=== PATIENT | female | born 1945 | race Caucasian/White ===

== ENCOUNTER 2020-09-26 16:19 | Inpatient (IN) ==
[2020-09-26 17:12] LABS: Basophils # 0.1 K/mcL (0.0-0.2); Basophils % 0.6 %; Eosinophils % 9.4 %; Immature Granulocytes % 1.3 % (0-4); Lymphocytes # 1.9 K/mcL (0.6-4.6); Lymphocytes % 17.8 %; Mean Corpuscular Hemoglobin 32.8 pg (28.0-33.3); Mean Corpuscular Volume 109.5 fL (83.0-100.0); Mean Platelet Volume 11.1 fL (9.4-12.4); Monocytes # 0.7 K/mcL (0.0-1.3); Monocytes % 6.6 %; Neutrophils # 6.8 K/mcL (1.6-8.9); Platelet Count 324 K/mcL (140-400); Red Blood Count 2.74 M/mcL (3.82-4.97); Red Cell Distribution Width 17.2 % (11.5-14.5); Segmented Neutrophils % 64.3 %; White Blood Count 10.6 K/mcL (4.3-11.1)
[2020-09-26 17:45] LABS: Calcium 8.2 mg/dL (8.6-10.3); Potassium 6.1 mEq/L (3.5-5.1)
[2020-09-26] MEDS ORDERED: Calcium Gluconate 1gm/50mL BAG IVPB ONE (18:10)
[2020-09-26] MEDS ORDERED: Albuterol 2.5 MG/3 ML NEBULIZER AER ONE (18:15)
[2020-09-26] MEDS ORDERED: Insulin Human Regular 5 UNIT in 0.9 % Sodium Chloride 10 ML IV ONE (18:15)
[2020-09-26] MEDS ORDERED: *HR* Dextrose 50 % in Water (Vial) 50 ML VIAL IVP ONE (18:15)
[2020-09-26] MEDS ORDERED: Naloxone 0.4 MG/ML INJ IVP PRN (20:00)
[2020-09-26] MEDS ORDERED: 0.9 % Sodium Chloride 500 ML IVC ONE (20:15)
[2020-09-27] MEDS ORDERED: Acetaminophen 325 MG TABLET PO ONE (00:05)
[2020-09-27 02:03] LABS: Folate 6.8 ng/mL (3.0-16.0)
[2020-09-27 04:09] LABS: Hematocrit 26.4 % (35.3-44.9); Hemoglobin 8.4 g/dL (11.5-15.4); Immature Reticulocyte % 17.6 % (11.0-38.0); Mean Corpuscular HGB Conc 31.8 g/dL (31.6-35.5); Mean Corpuscular Hemoglobin 33.2 pg (28.0-33.3); Mean Corpuscular Volume 104.3 fL (83.0-100.0); Mean Platelet Volume 11.6 fL (9.4-12.4); Platelet Count 246 K/mcL (140-400); Red Blood Count 2.53 M/mcL (3.82-4.97); Red Cell Distribution Width 17.1 % (11.5-14.5); Retculocyte # 0.06 M/mcL (0.05-0.10); Reticulocyte % 2.4 % (1.6-2.8); White Blood Count 11.5 K/mcL (4.3-11.1)
[2020-09-27 04:32] LABS: % Iron Saturation 47 % (15-50); Iron 59 mcg/dL (50-170); Transferrin 89 mg/dL (203-362)
[2020-09-27 04:38] LABS: Calcium 7.7 mg/dL (8.6-10.3); Magnesium 2.4 mg/dL (1.6-2.6); Phosphorous 8.4 mg/dL (2.7-4.5); Potassium 6.5 mEq/L (3.5-5.1)
[2020-09-27] MEDS ORDERED: Calcium Gluconate 1,000 MG/10 ML VIAL IVPB ONE (05:00)
[2020-09-27] MEDS ORDERED: *HR* Dextrose 50 % in Water (Vial) 50 ML VIAL IVP ONE (05:02)
[2020-09-27] MEDS ORDERED: Calcium Gluconate 1gm/50mL BAG IVPB ONE (05:30)
[2020-09-27] MEDS ORDERED: Insulin Human Regular 10 UNIT in 0.9 % Sodium Chloride 10 ML IV ONE (05:32)
[2020-09-27 05:44] LABS: Ferritin > 1500 ng/mL (10-120)
[2020-09-27] MEDS ORDERED: *HR* Heparin 10,000 UNIT/10 ML VIAL IV PRN (07:55)
[2020-09-27] MEDS ORDERED: 0.9 % Sodium Chloride 250 ML IVC PRN (07:55)
[2020-09-27] MEDS ORDERED: 0.9 % Sodium Chloride 1,000 ML PRIME SCH (08:00)
[2020-09-27 09:35] LABS: Potassium 5.8 mEq/L (3.5-5.1)
[2020-09-27] MEDS ORDERED: Albumin 25% 25gram/100mL 25 GM/100 ML IV.SOLN IVPB PRN (09:46)
[2020-09-27] MEDS ORDERED: Albumin 25% 25gram/100mL 25 GM/100 ML IV.SOLN ONE (09:48)
[2020-09-27 09:50] LABS: Hepatitis B Surface Antibody < 3.10 mIU/mL
[2020-09-27 10:00] LABS: Hepatitis B Surface Antigen Nonreactive (Nonreactive)
[2020-09-27] MEDS ORDERED: *HR* OxyCODONE/APAP 5/325 TABLET PO PRN (10:49)
[2020-09-27] MEDS: SODIUM ZIRCONIUM CYCLOSILICATE 5 GM POWD.PACK PO SCH ×2 (11:04)
[2020-09-27] MEDS ORDERED: Darbepoetin 100 MCG/0.5 ML SYRINGE SQ SCH (13:45)
[2020-09-27] MEDS ORDERED: 0.9 % Sodium Chloride 500 ML ONE (14:03)
[2020-09-27] MEDS: Acetaminophen 325 MG TABLET PO PRN (15:26)
[2020-09-27] MEDS ORDERED: Ergocalciferol (VIT D2) 50,000 UNIT (1.25MG) CAP PO SCH (16:00)
[2020-09-27] MEDS ORDERED: SUCROFERRIC OXYHYDROXIDE PO SCH (17:00)
[2020-09-28 03:09] LABS: Basophils % 0.4 %; Eosinophils # 0.3 K/mcL (0.0-0.6); Eosinophils % 2.4 %; Hematocrit 23.1 % (35.3-44.9); Hemoglobin 7.3 g/dL (11.5-15.4); Lymphocytes # 1.1 K/mcL (0.6-4.6); Lymphocytes % 10.5 %; Mean Corpuscular HGB Conc 31.6 g/dL (31.6-35.5); Mean Corpuscular Hemoglobin 33.3 pg (28.0-33.3); Mean Corpuscular Volume 105.5 fL (83.0-100.0); Mean Platelet Volume 11.3 fL (9.4-12.4); Monocytes # 0.9 K/mcL (0.0-1.3); Monocytes % 8.5 %; Neutrophils # 8.4 K/mcL (1.6-8.9); Platelet Count 217 K/mcL (140-400); Red Blood Count 2.19 M/mcL (3.82-4.97); Red Cell Distribution Width 17.4 % (11.5-14.5); Segmented Neutrophils % 77.2 %; White Blood Count 10.9 K/mcL (4.3-11.1)
[2020-09-28 03:27] LABS: Calcium 7.9 mg/dL (8.6-10.3)
[2020-09-28] MEDS: SODIUM ZIRCONIUM CYCLOSILICATE 5 GM POWD.PACK PO SCH (08:21)
[2020-09-29 01:52] LABS: Basophils % 0.4 %; Eosinophils # 0.2 K/mcL (0.0-0.6); Hematocrit 25.1 % (35.3-44.9); Hemoglobin 7.8 g/dL (11.5-15.4); Immature Granulocytes % 2.2 % (0-4); Lymphocytes # 1.2 K/mcL (0.6-4.6); Lymphocytes % 10.7 %; Mean Corpuscular HGB Conc 31.1 g/dL (31.6-35.5); Mean Corpuscular Hemoglobin 33.5 pg (28.0-33.3); Mean Corpuscular Volume 107.7 fL (83.0-100.0); Mean Platelet Volume 11.5 fL (9.4-12.4); Neutrophils # 8.3 K/mcL (1.6-8.9); Platelet Count 222 K/mcL (140-400); Red Blood Count 2.33 M/mcL (3.82-4.97); Red Cell Distribution Width 17.9 % (11.5-14.5); Segmented Neutrophils % 75.7 %; White Blood Count 10.9 K/mcL (4.3-11.1)
[2020-09-29 02:09] LABS: Calcium 8.1 mg/dL (8.6-10.3); Potassium 5.1 mEq/L (3.5-5.1)
[2020-09-29] MEDS: Ondansetron 4 MG/2 ML VIAL IVP PRN ×2 (03:35→13:29)
[2020-09-29] MEDS: Acetaminophen 325 MG TABLET PO PRN ×2 (05:20→14:29)
[2020-09-29] MEDS ORDERED: *HR* Heparin 10,000 UNIT/10 ML VIAL IV PRN (07:24)
[2020-09-29] MEDS ORDERED: 0.9 % Sodium Chloride 250 ML IVC PRN (07:24)
[2020-09-29] MEDS: SODIUM ZIRCONIUM CYCLOSILICATE 5 GM POWD.PACK PO SCH (09:20)
[2020-09-29] MEDS: Calcium Acetate 667 MG CAPSULE PO SCH ×2 (12:32→17:30)
[2020-09-29] MEDS ORDERED: 0.9 % Sodium Chloride 500 ML ONE (12:37)
[2020-09-29] MEDS ORDERED: Heparin 1,000 UNITS/500 mL 500 ML ONE (12:37)
[2020-09-30 06:10] LABS: Calcium 7.6 mg/dL (8.6-10.3); Magnesium 2.2 mg/dL (1.6-2.6); Phosphorous 8.6 mg/dL (2.7-4.5); Potassium 5.6 mEq/L (3.5-5.1)
[2020-09-30] MEDS ORDERED: Dextrose Gel 15 GM/37.5 ML TUBE PO PRN ×2 (07:12)
[2020-09-30] MEDS ORDERED: D5% in Water 1,000 ML IVC PRN (07:12)
[2020-09-30 07:22] LABS: Basophils % 0.2 %; Eosinophils # 0.1 K/mcL (0.0-0.6); Eosinophils % 0.8 %; Hematocrit 25.5 % (35.3-44.9); Hemoglobin 7.8 g/dL (11.5-15.4); Immature Granulocytes % 1.8 % (0-4); Lymphocytes # 1.1 K/mcL (0.6-4.6); Lymphocytes % 6.7 %; Mean Corpuscular HGB Conc 30.6 g/dL (31.6-35.5); Mean Corpuscular Hemoglobin 33.3 pg (28.0-33.3); Mean Platelet Volume 11.3 fL (9.4-12.4); Monocytes # 1.4 K/mcL (0.0-1.3); Monocytes % 8.6 %; Neutrophils # 13.4 K/mcL (1.6-8.9); Nucleated Red Blood Cells 0.2 /100 WBC (0); Platelet Count 244 K/mcL (140-400); Red Blood Count 2.34 M/mcL (3.82-4.97); Red Cell Distribution Width 17.9 % (11.5-14.5); Segmented Neutrophils % 81.9 %; White Blood Count 16.3 K/mcL (4.3-11.1)
[2020-09-30] MEDS: Calcium Acetate 667 MG CAPSULE PO SCH ×3 (07:40→17:51)
[2020-09-30] MEDS: SODIUM ZIRCONIUM CYCLOSILICATE 5 GM POWD.PACK PO SCH (07:40)
[2020-09-30] MEDS ORDERED: *HR* Heparin 10,000 UNIT/10 ML VIAL IV PRN ×2 (07:47)
[2020-09-30] MEDS ORDERED: 0.9 % Sodium Chloride 250 ML IVC PRN (07:47)
[2020-09-30] MEDS ORDERED: Albumin 25% 25gram/100mL 25 GM/100 ML IV.SOLN IVPB PRN (07:47)
[2020-09-30] MEDS: Ondansetron 4 MG/2 ML VIAL IVP PRN (07:51)
[2020-09-30] MEDS ORDERED: 0.9 % Sodium Chloride 1,000 ML PRIME SCH (08:00)
[2020-09-30] MEDS: *HR* Dextrose 50 % in Water (Vial) 50 ML VIAL IVP PRN (09:14)
[2020-09-30] MEDS: Insulin LISPRO 300 UNITS/3 ML VIAL SUBQ SCH ×2 (11:07→18:20)
[2020-09-30] MEDS ORDERED: *HR* Heparin 5,000 UNIT/ML VIAL ONE (12:41)
[2020-09-30] MEDS: Acetaminophen 325 MG TABLET PO PRN (18:10)
[2020-09-30 18:58] LABS: INR 1.4; Prothrombin Time 15.7 Seconds (9.4-12.1)
[2020-10-01 00:24] LABS: Basophils % 0.1 %; Eosinophils # 0.1 K/mcL (0.0-0.6); Hematocrit 19.2 % (35.3-44.9); Immature Granulocytes % 1.1 % (0-4); Lymphocytes # 0.6 K/mcL (0.6-4.6); Mean Corpuscular HGB Conc 31.3 g/dL (31.6-35.5); Mean Corpuscular Hemoglobin 33.9 pg (28.0-33.3); Mean Corpuscular Volume 108.5 fL (83.0-100.0); Mean Platelet Volume 11.4 fL (9.4-12.4); Monocytes # 0.9 K/mcL (0.0-1.3); Monocytes % 7.1 %; Nucleated Red Blood Cells 0.3 /100 WBC (0); Platelet Count 167 K/mcL (140-400); Red Blood Count 1.77 M/mcL (3.82-4.97); Red Cell Distribution Width 17.9 % (11.5-14.5); Segmented Neutrophils % 85.7 %; White Blood Count 12.8 K/mcL (4.3-11.1)
[2020-10-01] MEDS: Insulin LISPRO 300 UNITS/3 ML VIAL SUBQ SCH ×4 (01:02→19:13)
[2020-10-01 01:03] LABS: Basophils % 0.1 %; Eosinophils # 0.2 K/mcL (0.0-0.6); Eosinophils % 1.1 %; Hematocrit 20.6 % (35.3-44.9); Hemoglobin 6.4 g/dL (11.5-15.4); Immature Granulocytes % 1.2 % (0-4); Lymphocytes # 0.7 K/mcL (0.6-4.6); Lymphocytes % 5.4 %; Mean Corpuscular HGB Conc 31.1 g/dL (31.6-35.5); Mean Corpuscular Hemoglobin 33.5 pg (28.0-33.3); Mean Corpuscular Volume 107.9 fL (83.0-100.0); Mean Platelet Volume 11.7 fL (9.4-12.4); Monocytes % 7.5 %; Neutrophils # 11.7 K/mcL (1.6-8.9); Nucleated Red Blood Cells 0.1 /100 WBC (0); Platelet Count 187 K/mcL (140-400); Red Blood Count 1.91 M/mcL (3.82-4.97); Red Cell Distribution Width 17.9 % (11.5-14.5); Segmented Neutrophils % 84.7 %; White Blood Count 13.8 K/mcL (4.3-11.1)
[2020-10-01 01:59] LABS: Calcium 7.7 mg/dL (8.6-10.3); Potassium 3.7 mEq/L (3.5-5.1)
[2020-10-01] MEDS ORDERED: 0.9 % Sodium Chloride 250 ML IVC SCH ×2 (02:00→17:53)
[2020-10-01] MEDS ORDERED: Heparin 1,000 UNITS/500 mL 0 ML ONE (07:12)
[2020-10-01] MEDS ORDERED: *HR* Alteplase (Cathflo) 2 MG VIAL IVP ONE ×2 (09:10→17:53)
[2020-10-01] MEDS: Calcium Acetate 667 MG CAPSULE PO SCH ×2 (09:28→11:54)
[2020-10-01] MEDS: SODIUM ZIRCONIUM CYCLOSILICATE 5 GM POWD.PACK PO SCH (09:29)
[2020-10-01] MEDS: *HR* Dextrose 50 % in Water (Vial) 50 ML VIAL IVP PRN ×2 (09:56→11:53)
[2020-10-01 10:05] LABS: Hematocrit 25.5 % (35.3-44.9)
[2020-10-01] MEDS ORDERED: 0.9 % Sodium Chloride 250 ML ONE (10:33)
[2020-10-01] MEDS ORDERED: 0.9 % Sodium Chloride 250 ML IVC ONE ×2 (10:37→11:38)
[2020-10-01 10:57] LABS: ABG Base Excess 6 mEq/L (-2 to 3); ABG HCO3 32 mEq/L (21-27); ABG Oxygen Saturation 99 % (95-98); ABG PCO2 56 mmHg (35-45); ABG PH 7.36 pH Units (7.32-7.45); ABG PO2 158 mmHg (85-104); ABG TCO2 34 mEq/L (20-26)
[2020-10-01] MEDS ORDERED: Albumin 25% 25gram/100mL 25 GM/100 ML IV.SOLN IVPB ONE (10:57)
[2020-10-01] MEDS ORDERED: levoFLOXacin 750 MG/150 ML 750 MG/150 ML BAG IVPB SCH (11:00)
[2020-10-01] MEDS ORDERED: Vancomycin 1,750 MG in 0.9 % Sodium Chloride 250 ML IVPB SCH (11:00)
[2020-10-01] MEDS ORDERED: Vancomycin 1,750 MG/517.5 ML IV.SOLN IVPB ONE (11:08)
[2020-10-01 11:19] LABS: Albumin 2.8 g/dL (3.5-5.7); Bilirubin,Total 0.7 mg/dL (0.3-1.0); Calcium 7.7 mg/dL (8.6-10.3); Potassium 3.5 mEq/L (3.5-5.1); Total Protein 5.7 g/dL (6.4-8.9)
[2020-10-01 11:20] LABS: Globulin 2.9 g/dL (2.4-3.5)
[2020-10-01] MEDS ORDERED: *HR* Dextrose 50 % in Water (Vial) 50 ML VIAL ONE (11:36)
[2020-10-01] MEDS ORDERED: Norepinephrine 4 MG in 0.9 % Sodium Chloride 250 ML IVC SCH (13:45)
[2020-10-01] MEDS ORDERED: Acetaminophen 325 MG TABLET PO PRN (17:53)
[2020-10-01] MEDS ORDERED: Naloxone 0.4 MG/ML INJ IVP PRN (17:53)
[2020-10-01] MEDS ORDERED: 0.9 % Sodium Chloride 1,000 ML PRIME SCH (17:53)
[2020-10-01] MEDS ORDERED: Ondansetron 4 MG/2 ML VIAL IVP PRN (17:53)
[2020-10-01] MEDS ORDERED: 0.9 % Sodium Chloride 250 ML IVC PRN (17:53)
[2020-10-01 18:08] LABS: Hematocrit 23.8 % (35.3-44.9); Hemoglobin 7.4 g/dL (11.5-15.4)
[2020-10-02] MEDS: Insulin LISPRO 300 UNITS/3 ML VIAL SUBQ SCH ×4 (01:06→16:25)
[2020-10-02 04:16] LABS: Bilirubin,Total 0.7 mg/dL (0.3-1.0); Calcium 7.9 mg/dL (8.6-10.3); Potassium 3.9 mEq/L (3.5-5.1)
[2020-10-02] MEDS: Calcium Acetate 667 MG CAPSULE PO SCH ×3 (07:48→16:24)
[2020-10-02 08:23] LABS: Basophils % 0.1 %; Eosinophils # 0.2 K/mcL (0.0-0.6); Eosinophils % 1.3 %; Hematocrit 26.3 % (35.3-44.9); Hemoglobin 8.1 g/dL (11.5-15.4); Immature Granulocytes % 1.8 % (0-4); Lymphocytes # 0.9 K/mcL (0.6-4.6); Mean Corpuscular HGB Conc 30.8 g/dL (31.6-35.5); Mean Corpuscular Hemoglobin 32.8 pg (28.0-33.3); Mean Corpuscular Volume 106.5 fL (83.0-100.0); Mean Platelet Volume 11.8 fL (9.4-12.4); Monocytes # 1.2 K/mcL (0.0-1.3); Monocytes % 6.8 %; Neutrophils # 14.7 K/mcL (1.6-8.9); Nucleated Red Blood Cells 0.2 /100 WBC (0); Platelet Count 204 K/mcL (140-400); Red Blood Count 2.47 M/mcL (3.82-4.97); Red Cell Distribution Width 19.7 % (11.5-14.5); White Blood Count 17.3 K/mcL (4.3-11.1)
[2020-10-02] MEDS ORDERED: Ringers Solution, Lactated 500 ML IVC ONE (08:24)
[2020-10-02] MEDS ORDERED: Ringers Solution, Lactated 500 ML ONE (08:30)
[2020-10-02] MEDS ORDERED: 0.9 % Sodium Chloride 250 ML IVC PRN (08:38)
[2020-10-02] MEDS ORDERED: *HR* Heparin 10,000 UNIT/10 ML VIAL IV PRN (08:38)
[2020-10-02] MEDS ORDERED: *HR* Dextrose 50 % in Water (Vial) 50 ML VIAL ONE ×2 (10:01→14:39)
[2020-10-02] MEDS: *HR* Dextrose 50 % in Water (Vial) 50 ML VIAL IVP PRN (11:52)
[2020-10-02] MEDS ORDERED: 0.9 % Sodium Chloride 500 ML ONE (17:18)
[2020-10-02] MEDS ORDERED: D5% in Water 1,000 ML IVC ONE (17:18)
[2020-10-02 17:28] LABS: Calcium 8.2 mg/dL (8.6-10.3); Magnesium 1.7 mg/dL (1.6-2.6); Potassium 3.5 mEq/L (3.5-5.1)
[2020-10-02] MEDS ORDERED: Magnesium Sulfate 1 GM/102 ML PIGGYBACK IVPB ONE (17:51)
[2020-10-02] MEDS ORDERED: Amiodarone Premix 360 MG/200 ML BAG IVC ONE (18:10)
[2020-10-02] MEDS ORDERED: Amiodarone Premix 150 MG/100 ML BAG IVPB ONE (18:10)
[2020-10-02] MEDS ORDERED: *HR* Heparin 5,000 UNIT/ML VIAL IVP PRN ×2 (18:10)
[2020-10-02] MEDS ORDERED: *HR* Heparin 5,000 UNIT/ML VIAL IVP ONE (18:10)
[2020-10-02 18:14] LABS: Troponin I 0.13 ng/mL (< 0.04)
[2020-10-02] MEDS: D5% in 0.45% NACL 1,000 ML IVC SCH ×2 (18:15→21:11)
[2020-10-02] MEDS ORDERED: Acetaminophen IV 1,000 MG/100 ML BAG IVPB ONE (18:45)
[2020-10-02 19:01] LABS: VBG HCO3 31 mEq/L (21-27); VBG PCO2 56 mmHg (41-51); VBG PH 7.36 pH Units (7.32-7.42); VBG PO2 150 mmHg (25-50)
[2020-10-02] MEDS ORDERED: Levothyroxine Sodium 100 MCG VIAL IVP STA (19:03)
[2020-10-02] MEDS: Heparin 25,000UNIT/250ML 1/2NS 25,000 UNIT/250 ML IV.SOLN IVC SCH (21:30)
[2020-10-03] MEDS ORDERED: Amiodarone Premix 360 MG/200 ML BAG IVC SCH (00:27)
[2020-10-03 03:48] LABS: Basophils % 0.2 %; Eosinophils # 0.4 K/mcL (0.0-0.6); Eosinophils % 2.1 %; Hematocrit 26.3 % (35.3-44.9); Hemoglobin 8.1 g/dL (11.5-15.4); Immature Granulocytes % 3.7 % (0-4); Lymphocytes % 6.1 %; Mean Corpuscular HGB Conc 30.8 g/dL (31.6-35.5); Mean Corpuscular Hemoglobin 32.8 pg (28.0-33.3); Mean Corpuscular Volume 106.5 fL (83.0-100.0); Mean Platelet Volume 11.4 fL (9.4-12.4); Monocytes # 1.4 K/mcL (0.0-1.3); Monocytes % 8.3 %; Neutrophils # 13.2 K/mcL (1.6-8.9); Nucleated Red Blood Cells 0.2 /100 WBC (0); Platelet Count 164 K/mcL (140-400); Red Blood Count 2.47 M/mcL (3.82-4.97); Red Cell Distribution Width 19.9 % (11.5-14.5); Segmented Neutrophils % 79.6 %; White Blood Count 16.6 K/mcL (4.3-11.1)
[2020-10-03 04:08] LABS: Potassium 3.6 mEq/L (3.5-5.1)
[2020-10-03] MEDS: Insulin LISPRO 300 UNITS/3 ML VIAL SUBQ SCH ×4 (05:16→18:25)
[2020-10-03] MEDS: Calcium Acetate 667 MG CAPSULE PO SCH ×3 (07:40→18:23)
[2020-10-03] MEDS ORDERED: Levothyroxine Sodium 100 MCG VIAL IVP SCH (09:00)
[2020-10-03] MEDS ORDERED: levoFLOXacin 500 MG/100 ML 500 MG/100 ML BAG IVPB SCH ×2 (11:00)
[2020-10-03] MEDS: Heparin 25,000UNIT/250ML 1/2NS 25,000 UNIT/250 ML IV.SOLN IVC SCH (11:42)
[2020-10-03] MEDS ORDERED: Naloxone 0.4 MG/ML INJ IVP PRN (12:52)
[2020-10-03 12:55] LABS: Heparin anti-factor XA UFH 0.35 IU/mL (0.30-0.70)
[2020-10-03] MEDS ORDERED: *HR* Heparin 5,000 UNIT/ML VIAL IVP PRN ×2 (13:30)
[2020-10-03] MEDS ORDERED: Heparin 25,000UNIT/250ML 1/2NS 25,000 UNIT/250 ML IV.SOLN IVC SCH (13:30)
[2020-10-03 13:43] LABS: INR 1.6; Prothrombin Time 17.7 Seconds (9.4-12.1)
[2020-10-03] MEDS: levoFLOXacin 500 MG/100 ML 500 MG/100 ML BAG IVPB SCH (14:01)
[2020-10-03] MEDS ORDERED: Levothyroxine Sodium 100 MCG VIAL IVP ONE (18:30)
[2020-10-03] MEDS: Hydrocortisone Sodium Succ 100 MG/2 ML VIAL IVP SCH (18:31)
[2020-10-03] MEDS ORDERED: *HR* HYDROmorphone (PF) 1 MG/ML SYRINGE IVP ONE (18:43)
[2020-10-03] MEDS: Albumin 25% 25gram/100mL 25 GM/100 ML IV.SOLN IVC SCH ×2 (19:38→22:15)
[2020-10-04] MEDS: Insulin LISPRO 300 UNITS/3 ML VIAL SUBQ SCH ×4 (00:15→16:28)
[2020-10-04] MEDS: Hydrocortisone Sodium Succ 100 MG/2 ML VIAL IVP SCH ×3 (01:08→16:27)
[2020-10-04 03:20] LABS: Hematocrit 24.5 % (35.3-44.9); Hemoglobin 7.5 g/dL (11.5-15.4); Mean Corpuscular HGB Conc 30.6 g/dL (31.6-35.5); Mean Corpuscular Volume 107.9 fL (83.0-100.0); Mean Platelet Volume 10.8 fL (9.4-12.4); Nucleated Red Blood Cells 0.3 /100 WBC (0); Platelet Count 145 K/mcL (140-400); Red Blood Count 2.27 M/mcL (3.82-4.97); White Blood Count 13.9 K/mcL (4.3-11.1)
[2020-10-04 03:40] LABS: Calcium 8.3 mg/dL (8.6-10.3); Magnesium 2.2 mg/dL (1.6-2.6); Phosphorous 5.1 mg/dL (2.7-4.5); Potassium 4.1 mEq/L (3.5-5.1)
[2020-10-04 03:42] LABS: Lymphocytes # 0.3 K/mcL (0.6-4.6); Monocytes # 0.6 K/mcL (0.0-1.3); Neutrophils # 11.7 K/mcL (1.6-8.9)
[2020-10-04 03:43] LABS: Anisocytosis 1+ (Not Present); Platelet Estimate Normal (Normal); Poikilocytosis 1+ (Not Present); Polychromasia 1+ (Not Present); Toxic Granulation Present (Not Present)
[2020-10-04] MEDS ORDERED: 0.9 % Sodium Chloride 1,000 ML ONE ×2 (07:24→15:29)
[2020-10-04] MEDS ORDERED: Levothyroxine Sodium 100 MCG VIAL IVP SCH (09:00)
[2020-10-04] MEDS: Calcium Acetate 667 MG CAPSULE PO SCH ×3 (09:54→16:28)
[2020-10-04] MEDS: Darbepoetin 100 MCG/0.5 ML SYRINGE SQ SCH (10:52)
[2020-10-04] MEDS ORDERED: Darbepoetin 100 MCG/0.5 ML SYRINGE SQ SCH (13:45)
[2020-10-04] MEDS ORDERED: Heparin 1,000 UNITS/500 mL 500 ML ONE ×2 (14:08→15:48)
[2020-10-04] MEDS ORDERED: *HR* Alteplase (Cathflo) 2 MG VIAL IVP ONE (15:00)
[2020-10-04] MEDS ORDERED: Isovue-300 50ML VIAL IVP ONE (15:24)
[2020-10-04 15:29] LABS: Troponin I 0.12 ng/mL (< 0.04)
[2020-10-04] MEDS ORDERED: *HR* FentaNYL (PF) 100 MCG/2 ML VIAL IVP ONE (15:41)
[2020-10-04] MEDS ORDERED: *HR* FentaNYL (PF) 100 MCG/2 ML VIAL ONE (15:41)
[2020-10-04] MEDS ORDERED: *HR* Heparin 5,000 UNIT/ML VIAL ONE (16:13)
[2020-10-04] MEDS: *HR* Heparin 5,000 UNIT/ML VIAL SQ SCH (16:28)
[2020-10-05] MEDS: Hydrocortisone Sodium Succ 100 MG/2 ML VIAL IVP SCH ×3 (00:36→16:18)
[2020-10-05] MEDS: Insulin LISPRO 300 UNITS/3 ML VIAL SUBQ SCH ×4 (00:36→17:05)
[2020-10-05 00:42] LABS: Hematocrit 24.6 % (35.3-44.9); Hemoglobin 7.7 g/dL (11.5-15.4); Mean Corpuscular HGB Conc 31.3 g/dL (31.6-35.5); Mean Corpuscular Hemoglobin 32.8 pg (28.0-33.3); Mean Corpuscular Volume 104.7 fL (83.0-100.0); Mean Platelet Volume 10.6 fL (9.4-12.4); Nucleated Red Blood Cells 0.4 /100 WBC (0); Platelet Count 153 K/mcL (140-400); Red Blood Count 2.35 M/mcL (3.82-4.97); Red Cell Distribution Width 20.2 % (11.5-14.5); White Blood Count 14.9 K/mcL (4.3-11.1)
[2020-10-05 01:01] LABS: Calcium 7.9 mg/dL (8.6-10.3); Magnesium 2.2 mg/dL (1.6-2.6); Phosphorous 5.9 mg/dL (2.7-4.5); Potassium 4.3 mEq/L (3.5-5.1)
[2020-10-05 01:43] LABS: Anisocytosis 1+ (Not Present); Hypochromasia Present (Not Present); Lymphocytes # 1.2 K/mcL (0.6-4.6); Macrocytosis Present (Not Present); Monocytes # 2.1 K/mcL (0.0-1.3); Neutrophils # 11.3 K/mcL (1.6-8.9); Platelet Estimate Normal (Normal)
[2020-10-05] MEDS: *HR* Heparin 5,000 UNIT/ML VIAL SQ SCH ×2 (06:20→17:05)
[2020-10-05] MEDS ORDERED: *HR* Heparin 10,000 UNIT/10 ML VIAL IV PRN (07:21)
[2020-10-05] MEDS ORDERED: 0.9 % Sodium Chloride 250 ML IVC PRN (07:21)
[2020-10-05] MEDS ORDERED: 0.9 % Sodium Chloride 1,000 ML PRIME SCH (07:30)
[2020-10-05] MEDS ORDERED: Perflutren Lipid Microsphere 1.3 ML in 0.9 % Sodium Chloride 8.7 ML IVP PRN (08:34)
[2020-10-05] MEDS ORDERED: Albumin 25% 25gram/100mL 25 GM/100 ML IV.SOLN ONE (10:25)
[2020-10-05] MEDS: Calcium Acetate 667 MG CAPSULE PO SCH ×3 (14:32→16:19)
[2020-10-05] MEDS: levoFLOXacin 500 MG/100 ML 500 MG/100 ML BAG IVPB SCH (14:32)
[2020-10-05] MEDS: Metoprolol XL (24 HR) Succ 25 MG TAB.ER.24H PO SCH (17:04)
[2020-10-06] MEDS: Insulin LISPRO 300 UNITS/3 ML VIAL SUBQ SCH ×5 (00:47→23:41)
[2020-10-06] MEDS: *HR* Heparin 5,000 UNIT/ML VIAL SQ SCH ×2 (06:10→17:06)
[2020-10-06 06:56] LABS: Hemoglobin 7.7 g/dL (11.5-15.4); Immature Platelets 5.7 % (1.1-6.1); Mean Corpuscular HGB Conc 30.8 g/dL (31.6-35.5); Mean Corpuscular Hemoglobin 32.5 pg (28.0-33.3); Mean Corpuscular Volume 105.5 fL (83.0-100.0); Mean Platelet Volume 10.5 fL (9.4-12.4); Platelet Count 163 K/mcL (140-400); Red Blood Count 2.37 M/mcL (3.82-4.97); Red Cell Distribution Width 20.3 % (11.5-14.5); White Blood Count 14.7 K/mcL (4.3-11.1)
[2020-10-06 07:12] LABS: Lymphocytes # 1.5 K/mcL (0.6-4.6); Monocytes # 0.9 K/mcL (0.0-1.3); Neutrophils # 11.5 K/mcL (1.6-8.9)
[2020-10-06 07:13] LABS: Anisocytosis 1+ (Not Present); Hypochromasia Present (Not Present); Platelet Estimate Normal (Normal)
[2020-10-06 07:16] LABS: Calcium 8.2 mg/dL (8.6-10.3); Phosphorous 4.6 mg/dL (2.7-4.5); Potassium 4.3 mEq/L (3.5-5.1)
[2020-10-06] MEDS: Calcium Acetate 667 MG CAPSULE PO SCH ×3 (08:03→17:06)
[2020-10-06] MEDS: Metoprolol XL (24 HR) Succ 25 MG TAB.ER.24H PO SCH (08:03)
[2020-10-06] MEDS: Doxycycline 100 MG in 0.9 % Sodium Chloride Mini Bag 100 ML IVPB SCH ×2 (09:50→20:13)
[2020-10-06] MEDS: Neosporin Opth OINT 3.5 GM TUBE LEFT EYE SCH ×3 (12:21→20:17)
[2020-10-06] MEDS: Hydrocortisone Sodium Succ 100 MG/2 ML VIAL IVP SCH ×2 (17:06→23:39)
[2020-10-06] MEDS: Sennosides/Docusate Sodium TABLET PO SCH (20:13)
[2020-10-07 03:01] LABS: Hematocrit 26.7 % (35.3-44.9); Mean Corpuscular Volume 108.1 fL (83.0-100.0); Nucleated Red Blood Cells 0.9 /100 WBC (0); Red Blood Count 2.47 M/mcL (3.82-4.97)
[2020-10-07 03:03] LABS: Hemoglobin 8.2 g/dL (11.5-15.4); Immature Platelets 5.1 % (1.1-6.1); Mean Corpuscular HGB Conc 30.7 g/dL (31.6-35.5); Mean Corpuscular Hemoglobin 33.2 pg (28.0-33.3); Mean Platelet Volume 10.5 fL (9.4-12.4); Platelet Count 166 K/mcL (140-400); Red Cell Distribution Width 19.9 % (11.5-14.5); White Blood Count 18.1 K/mcL (4.3-11.1)
[2020-10-07 03:20] LABS: Calcium 8.4 mg/dL (8.6-10.3); Magnesium 2.1 mg/dL (1.6-2.6); Phosphorous 4.8 mg/dL (2.7-4.5); Potassium 4.4 mEq/L (3.5-5.1)
[2020-10-07 04:16] LABS: Hypochromasia Present (Not Present); Lymphocytes # 2.9 K/mcL (0.6-4.6); Monocytes # 0.7 K/mcL (0.0-1.3); Platelet Estimate Normal (Normal)
[2020-10-07] MEDS: *HR* Heparin 5,000 UNIT/ML VIAL SQ SCH ×3 (05:00→21:18)
[2020-10-07] MEDS: Insulin LISPRO 300 UNITS/3 ML VIAL SUBQ SCH ×3 (06:32→18:01)
[2020-10-07] MEDS ORDERED: *HR* Heparin 10,000 UNIT/10 ML VIAL IV PRN (08:46)
[2020-10-07] MEDS ORDERED: 0.9 % Sodium Chloride 250 ML IVC PRN (08:46)
[2020-10-07] MEDS: Metoprolol XL (24 HR) Succ 25 MG TAB.ER.24H PO SCH (09:06)
[2020-10-07] MEDS: Calcium Acetate 667 MG CAPSULE PO SCH ×3 (09:07→18:02)
[2020-10-07] MEDS: Sennosides/Docusate Sodium TABLET PO SCH ×2 (09:07→20:03)
[2020-10-07] MEDS: Hydrocortisone Sodium Succ 100 MG/2 ML VIAL IVP SCH (09:07)
[2020-10-07] MEDS: polyethylene glycoL 3350 17 GM POWD.PACK PO SCH (09:07)
[2020-10-07] MEDS: Doxycycline 100 MG in 0.9 % Sodium Chloride Mini Bag 100 ML IVPB SCH ×2 (09:08→19:54)
[2020-10-07] MEDS: Neosporin Opth OINT 3.5 GM TUBE LEFT EYE SCH ×4 (09:09→20:02)
[2020-10-07] MEDS: levoFLOXacin 500 MG/100 ML 500 MG/100 ML BAG IVPB SCH (13:07)
[2020-10-07] MEDS ORDERED: Albumin 25% 25gram/100mL 25 GM/100 ML IV.SOLN ONE (14:26)
[2020-10-08] MEDS: Insulin LISPRO 300 UNITS/3 ML VIAL SUBQ SCH ×4 (00:42→18:49)
[2020-10-08] MEDS ORDERED: 0.9 % Sodium Chloride 500 ML ONE (02:56)
[2020-10-08] MEDS ORDERED: *HR* Dextrose 50 % in Water (Vial) 50 ML VIAL ONE (03:06)
[2020-10-08] MEDS ORDERED: *HR* Dextrose 50 % in Water (Vial) 50 ML VIAL IVP ONE ×2 (03:19→12:30)
[2020-10-08] MEDS ORDERED: 0.9 % Sodium Chloride 250 ML IVC ONE (03:20)
[2020-10-08 03:59] LABS: Basophils % 0.3 %; Eosinophils % 0.3 %; Monocytes % 9.6 %
[2020-10-08 04:01] LABS: Basophils # 0.1 K/mcL (0.0-0.2); Eosinophils # 0.1 K/mcL (0.0-0.6); Hematocrit 24.1 % (35.3-44.9); Hemoglobin 7.4 g/dL (11.5-15.4); Immature Granulocytes % 6.6 % (0-4); Immature Platelets 5.9 % (1.1-6.1); Lymphocytes # 1.5 K/mcL (0.6-4.6); Lymphocytes % 8.6 %; Mean Corpuscular HGB Conc 30.7 g/dL (31.6-35.5); Mean Corpuscular Volume 107.6 fL (83.0-100.0); Mean Platelet Volume 10.6 fL (9.4-12.4); Monocytes # 1.7 K/mcL (0.0-1.3); Neutrophils # 13.2 K/mcL (1.6-8.9); Platelet Count 123 K/mcL (140-400); Red Blood Count 2.24 M/mcL (3.82-4.97); Red Cell Distribution Width 19.6 % (11.5-14.5); Segmented Neutrophils % 74.6 %; White Blood Count 17.7 K/mcL (4.3-11.1)
[2020-10-08 04:18] LABS: Calcium 8.5 mg/dL (8.6-10.3); Magnesium 1.9 mg/dL (1.6-2.6); Potassium 3.9 mEq/L (3.5-5.1)
[2020-10-08 04:27] LABS: Anisocytosis 1+ (Not Present)
[2020-10-08 04:28] LABS: Hypochromasia Present (Not Present); Platelet Estimate Slight Decrease (Normal); Polychromasia 1+ (Not Present)
[2020-10-08] MEDS: Hydrocortisone Sodium Succ 100 MG/2 ML VIAL IVP SCH ×2 (05:37→18:25)
[2020-10-08] MEDS: *HR* Heparin 5,000 UNIT/ML VIAL SQ SCH ×3 (05:37→20:01)
[2020-10-08] MEDS ORDERED: D5% in 0.45% NACL 1,000 ML IVC SCH (06:00)
[2020-10-08] MEDS ORDERED: *HR* Heparin 10,000 UNIT/10 ML VIAL IV PRN (07:30)
[2020-10-08] MEDS ORDERED: 0.9 % Sodium Chloride 250 ML IVC PRN ×2 (07:30→08:06)
[2020-10-08] MEDS ORDERED: Albumin 25% 25gram/100mL 25 GM/100 ML IV.SOLN IVPB PRN (08:06)
[2020-10-08] MEDS: Metoprolol XL (24 HR) Succ 25 MG TAB.ER.24H PO SCH (10:00)
[2020-10-08] MEDS: Calcium Acetate 667 MG CAPSULE PO SCH ×3 (10:50→17:14)
[2020-10-08] MEDS: Sennosides/Docusate Sodium TABLET PO SCH ×2 (12:35→19:58)
[2020-10-08] MEDS: polyethylene glycoL 3350 17 GM POWD.PACK PO SCH (12:35)
[2020-10-08] MEDS: Neosporin Opth OINT 3.5 GM TUBE LEFT EYE SCH ×3 (12:35→18:49)
[2020-10-08] MEDS: Doxycycline 100 MG in 0.9 % Sodium Chloride Mini Bag 100 ML IVPB SCH ×2 (12:36→19:58)
[2020-10-08 15:36] LABS: ABG Base Excess 9 mEq/L (-2 to 3); ABG HCO3 34 mEq/L (21-27); ABG Oxygen Saturation 95 % (95-98); ABG PCO2 52 mmHg (35-45); ABG PH 7.42 pH Units (7.32-7.45); ABG PO2 76 mmHg (85-104); ABG TCO2 36 mEq/L (20-26)
[2020-10-08] MEDS: Acetaminophen 325 MG TABLET PO PRN (19:33)
[2020-10-09] MEDS: Neosporin Opth OINT 3.5 GM TUBE LEFT EYE SCH ×5 (00:07→19:17)
[2020-10-09] MEDS: Insulin LISPRO 300 UNITS/3 ML VIAL SUBQ SCH ×5 (00:07→23:59)
[2020-10-09 03:14] LABS: Eosinophils % 0.1 %; Nucleated Red Blood Cells 1.1 /100 WBC (0); Red Cell Distribution Width 19.6 % (11.5-14.5); Segmented Neutrophils % 80.7 %
[2020-10-09 03:16] LABS: Basophils % 0.2 %; Hematocrit 24.8 % (35.3-44.9); Hemoglobin 7.5 g/dL (11.5-15.4); Immature Granulocytes % 5.4 % (0-4); Immature Platelets 8.1 % (1.1-6.1); Lymphocytes # 1.2 K/mcL (0.6-4.6); Lymphocytes % 6.2 %; Mean Corpuscular HGB Conc 30.2 g/dL (31.6-35.5); Mean Corpuscular Hemoglobin 32.2 pg (28.0-33.3); Mean Corpuscular Volume 106.4 fL (83.0-100.0); Mean Platelet Volume 11.1 fL (9.4-12.4); Monocytes # 1.5 K/mcL (0.0-1.3); Monocytes % 7.4 %; Neutrophils # 15.9 K/mcL (1.6-8.9); Red Blood Count 2.33 M/mcL (3.82-4.97); White Blood Count 19.7 K/mcL (4.3-11.1)
[2020-10-09 03:36] LABS: Calcium 8.2 mg/dL (8.6-10.3); Potassium 4.2 mEq/L (3.5-5.1)
[2020-10-09 04:05] LABS: Platelet Count 91 K/mcL (140-400)
[2020-10-09 04:06] LABS: Anisocytosis 1+ (Not Present); Hypochromasia Present (Not Present); Platelet Estimate Decreased (Normal)
[2020-10-09] MEDS: *HR* Heparin 5,000 UNIT/ML VIAL SQ SCH ×3 (06:20→19:19)
[2020-10-09] MEDS: Hydrocortisone Sodium Succ 100 MG/2 ML VIAL IVP SCH ×2 (06:21→18:14)
[2020-10-09] MEDS: Metoprolol XL (24 HR) Succ 25 MG TAB.ER.24H PO SCH (09:31)
[2020-10-09] MEDS: Calcium Acetate 667 MG CAPSULE PO SCH ×3 (09:32→18:15)
[2020-10-09] MEDS: Sennosides/Docusate Sodium TABLET PO SCH ×2 (09:32→19:17)
[2020-10-09] MEDS: polyethylene glycoL 3350 17 GM POWD.PACK PO SCH (09:32)
[2020-10-09] MEDS: Doxycycline 100 MG in 0.9 % Sodium Chloride Mini Bag 100 ML IVPB SCH (09:33)
[2020-10-09] MEDS ORDERED: Vancomycin 1,750 MG in 0.9 % Sodium Chloride 250 ML IVPB SCH (11:24)
[2020-10-09] MEDS ORDERED: Vancomycin 1,750 MG/517.5 ML IV.SOLN IVPB ONE (11:36)
[2020-10-09] MEDS: Piperacillin/Tazobactam 3.375 GM in 0.9 % Sodium Chloride Mini Bag 100 ML IVPB SCH ×2 (12:12→23:00)
[2020-10-09] MEDS: Lactobacillus 1 EACH CAP.SPRINK PO SCH (19:18)
[2020-10-09] MEDS: Ondansetron 4 MG/2 ML VIAL IVP PRN (19:30)
[2020-10-10 02:27] LABS: Eosinophils % 0.2 %; Hematocrit 25.1 % (35.3-44.9); Hemoglobin 7.7 g/dL (11.5-15.4); Mean Corpuscular HGB Conc 30.7 g/dL (31.6-35.5)
[2020-10-10 02:29] LABS: Basophils # 0.1 K/mcL (0.0-0.2); Basophils % 0.3 %; Immature Granulocytes % 4.1 % (0-4); Immature Platelets 9.2 % (1.1-6.1); Lymphocytes # 1.3 K/mcL (0.6-4.6); Lymphocytes % 5.9 %; Mean Corpuscular Hemoglobin 32.2 pg (28.0-33.3); Mean Platelet Volume 11.1 fL (9.4-12.4); Monocytes # 1.3 K/mcL (0.0-1.3); Monocytes % 6.2 %; Neutrophils # 17.9 K/mcL (1.6-8.9); Nucleated Red Blood Cells 0.9 /100 WBC (0); Red Blood Count 2.39 M/mcL (3.82-4.97); Red Cell Distribution Width 19.2 % (11.5-14.5); Segmented Neutrophils % 83.3 %; White Blood Count 21.5 K/mcL (4.3-11.1)
[2020-10-10 02:30] LABS: Platelet Count 92 K/mcL (140-400)
[2020-10-10 02:44] LABS: Calcium 8.4 mg/dL (8.6-10.3); Potassium 4.6 mEq/L (3.5-5.1)
[2020-10-10] MEDS: *HR* Heparin 5,000 UNIT/ML VIAL SQ SCH ×3 (05:30→20:41)
[2020-10-10] MEDS: Insulin LISPRO 300 UNITS/3 ML VIAL SUBQ SCH ×3 (05:36→17:40)
[2020-10-10] MEDS: polyethylene glycoL 3350 17 GM POWD.PACK PO SCH (10:09)
[2020-10-10] MEDS: Metoprolol XL (24 HR) Succ 25 MG TAB.ER.24H PO SCH (10:09)
[2020-10-10] MEDS: Neosporin Opth OINT 3.5 GM TUBE LEFT EYE SCH ×4 (10:10→20:42)
[2020-10-10] MEDS: Sennosides/Docusate Sodium TABLET PO SCH ×2 (10:10→20:41)
[2020-10-10] MEDS: Calcium Acetate 667 MG CAPSULE PO SCH ×3 (10:10→16:05)
[2020-10-10] MEDS: Lactobacillus 1 EACH CAP.SPRINK PO SCH ×2 (10:10→20:41)
[2020-10-10] MEDS ORDERED: Ringers Solution, Lactated 1,000 ML IVC ONE (11:07)
[2020-10-10] MEDS: Piperacillin/Tazobactam 3.375 GM in 0.9 % Sodium Chloride Mini Bag 100 ML IVPB SCH (12:44)
[2020-10-10] MEDS: Albumin 25% 25gram/100mL 25 GM/100 ML IV.SOLN IVPB SCH (17:40)
[2020-10-11] MEDS ORDERED: Albumin 25% 25gram/100mL 25 GM/100 ML IV.SOLN IVPB SCH
[2020-10-11] MEDS: Albumin 25% 25gram/100mL 25 GM/100 ML IV.SOLN IVPB SCH ×3 (01:32→12:15)
[2020-10-11] MEDS: Insulin LISPRO 300 UNITS/3 ML VIAL SUBQ SCH ×4 (01:47→16:12)
[2020-10-11] MEDS: Piperacillin/Tazobactam 3.375 GM in 0.9 % Sodium Chloride Mini Bag 100 ML IVPB SCH ×2 (03:58→16:11)
[2020-10-11 06:05] LABS: Basophils % 0.1 %; Eosinophils # 0.3 K/mcL (0.0-0.6); Eosinophils % 1.2 %; Hematocrit 21.6 % (35.3-44.9); Hemoglobin 6.7 g/dL (11.5-15.4); Immature Granulocytes % 2.8 % (0-4); Immature Platelets 8.5 % (1.1-6.1); Lymphocytes # 1.6 K/mcL (0.6-4.6); Lymphocytes % 7.4 %; Mean Corpuscular Hemoglobin 32.7 pg (28.0-33.3); Mean Corpuscular Volume 105.4 fL (83.0-100.0); Mean Platelet Volume 10.8 fL (9.4-12.4); Monocytes # 1.4 K/mcL (0.0-1.3); Monocytes % 6.7 %; Neutrophils # 17.4 K/mcL (1.6-8.9); Nucleated Red Blood Cells 0.5 /100 WBC (0); Platelet Count 87 K/mcL (140-400); Red Blood Count 2.05 M/mcL (3.82-4.97); Red Cell Distribution Width 19.2 % (11.5-14.5); Segmented Neutrophils % 81.8 %; White Blood Count 21.3 K/mcL (4.3-11.1)
[2020-10-11 06:24] LABS: Calcium 8.1 mg/dL (8.6-10.3); Magnesium 2.1 mg/dL (1.6-2.6); Phosphorous 4.5 mg/dL (2.7-4.5); Potassium 4.6 mEq/L (3.5-5.1)
[2020-10-11 06:37] LABS: Thyroid Stimulating Hormone 34.371 mcIU/mL (0.340-5.600)
[2020-10-11 06:39] LABS: Triiodothyronine (T3) Free 1.52 pg/mL (2.50-3.90)
[2020-10-11] MEDS: *HR* Heparin 5,000 UNIT/ML VIAL SQ SCH ×3 (06:48→19:39)
[2020-10-11] MEDS ORDERED: 0.9 % Sodium Chloride 250 ML IVC PRN (07:02)
[2020-10-11] MEDS ORDERED: 0.9 % Sodium Chloride 250 ML IVC SCH (07:45)
[2020-10-11] MEDS: Calcium Acetate 667 MG CAPSULE PO SCH ×3 (07:58→16:11)
[2020-10-11] MEDS: Neosporin Opth OINT 3.5 GM TUBE LEFT EYE SCH ×4 (07:59→19:39)
[2020-10-11] MEDS: Lactobacillus 1 EACH CAP.SPRINK PO SCH ×2 (07:59→19:39)
[2020-10-11] MEDS: Sennosides/Docusate Sodium TABLET PO SCH ×2 (07:59→19:39)
[2020-10-11] MEDS: polyethylene glycoL 3350 17 GM POWD.PACK PO SCH (07:59)
[2020-10-11] MEDS: Metoprolol XL (24 HR) Succ 25 MG TAB.ER.24H PO SCH (07:59)
[2020-10-11] MEDS: Darbepoetin 100 MCG/0.5 ML SYRINGE SQ SCH (08:00)
[2020-10-11] MEDS ORDERED: D5% in Water 1,000 ML IVC PRN (12:59)
[2020-10-11] MEDS ORDERED: *HR* Dextrose 50 % in Water (Vial) 50 ML VIAL IVP PRN (12:59)
[2020-10-11] MEDS ORDERED: Dextrose Gel 15 GM/37.5 ML TUBE PO PRN ×2 (12:59)
[2020-10-11 13:29] LABS: INR 1.2; Prothrombin Time 13.4 Seconds (9.4-12.1)
[2020-10-11] MEDS ORDERED: Heparin 1,000 UNITS/500 mL 500 ML ONE (15:26)
[2020-10-11] MEDS: Acetaminophen 325 MG TABLET PO PRN (16:11)
[2020-10-12] MEDS: Albumin 25% 25gram/100mL 25 GM/100 ML IV.SOLN IVPB SCH ×2 (00:04→08:37)
[2020-10-12] MEDS: Insulin LISPRO 300 UNITS/3 ML VIAL SUBQ SCH ×4 (00:54→19:23)
[2020-10-12 03:39] LABS: Immature Granulocytes % 2.3 % (0-4); Mean Corpuscular Volume 101.6 fL (83.0-100.0)
[2020-10-12 03:41] LABS: Basophils % 0.1 %; Eosinophils # 0.2 K/mcL (0.0-0.6); Eosinophils % 0.8 %; Hematocrit 25.6 % (35.3-44.9); Immature Platelets 9.4 % (1.1-6.1); Lymphocytes # 1.4 K/mcL (0.6-4.6); Lymphocytes % 6.4 %; Mean Corpuscular HGB Conc 31.3 g/dL (31.6-35.5); Mean Corpuscular Hemoglobin 31.7 pg (28.0-33.3); Mean Platelet Volume 11.1 fL (9.4-12.4); Monocytes # 1.3 K/mcL (0.0-1.3); Monocytes % 6.2 %; Neutrophils # 17.9 K/mcL (1.6-8.9); Nucleated Red Blood Cells 0.4 /100 WBC (0); Red Blood Count 2.52 M/mcL (3.82-4.97); Red Cell Distribution Width 20.8 % (11.5-14.5); Segmented Neutrophils % 84.2 %; White Blood Count 21.2 K/mcL (4.3-11.1)
[2020-10-12 03:43] LABS: Platelet Count 80 K/mcL (140-400)
[2020-10-12 04:00] LABS: Calcium 8.7 mg/dL (8.6-10.3); Magnesium 2.1 mg/dL (1.6-2.6); Potassium 3.6 mEq/L (3.5-5.1)
[2020-10-12] MEDS: Piperacillin/Tazobactam 3.375 GM in 0.9 % Sodium Chloride Mini Bag 100 ML IVPB SCH ×2 (04:04→17:01)
[2020-10-12] MEDS: *HR* Heparin 5,000 UNIT/ML VIAL SQ SCH ×3 (05:12→19:59)
[2020-10-12] MEDS: Neosporin Opth OINT 3.5 GM TUBE LEFT EYE SCH ×5 (08:35→19:59)
[2020-10-12] MEDS: Metoprolol XL (24 HR) Succ 25 MG TAB.ER.24H PO SCH (08:36)
[2020-10-12] MEDS: Sennosides/Docusate Sodium TABLET PO SCH ×2 (08:36→19:59)
[2020-10-12] MEDS: Lactobacillus 1 EACH CAP.SPRINK PO SCH ×2 (08:36→19:59)
[2020-10-12] MEDS: polyethylene glycoL 3350 17 GM POWD.PACK PO SCH (08:37)
[2020-10-12] MEDS: Calcium Acetate 667 MG CAPSULE PO SCH ×3 (08:37→17:00)
[2020-10-12] MEDS ORDERED: Isovue-370 500 ML BOTTLE IVP ONE (15:05)
[2020-10-13] MEDS: Insulin LISPRO 300 UNITS/3 ML VIAL SUBQ SCH ×4 (00:36→17:45)
[2020-10-13] MEDS: Piperacillin/Tazobactam 3.375 GM in 0.9 % Sodium Chloride Mini Bag 100 ML IVPB SCH ×2 (03:15→17:34)
[2020-10-13 03:21] LABS: Basophils % 0.2 %; Hemoglobin 8.1 g/dL (11.5-15.4); Nucleated Red Blood Cells 0.2 /100 WBC (0)
[2020-10-13 03:23] LABS: Eosinophils # 0.2 K/mcL (0.0-0.6); Eosinophils % 0.8 %; Hematocrit 26.3 % (35.3-44.9); Immature Granulocytes % 1.9 % (0-4); Immature Platelets 8.4 % (1.1-6.1); Lymphocytes # 1.3 K/mcL (0.6-4.6); Lymphocytes % 6.1 %; Mean Corpuscular HGB Conc 30.8 g/dL (31.6-35.5); Mean Corpuscular Hemoglobin 32.1 pg (28.0-33.3); Mean Corpuscular Volume 104.4 fL (83.0-100.0); Mean Platelet Volume 11.5 fL (9.4-12.4); Monocytes # 1.3 K/mcL (0.0-1.3); Monocytes % 6.5 %; Neutrophils # 17.3 K/mcL (1.6-8.9); Platelet Count 93 K/mcL (140-400); Red Blood Count 2.52 M/mcL (3.82-4.97); Red Cell Distribution Width 20.2 % (11.5-14.5); Segmented Neutrophils % 84.5 %; White Blood Count 20.5 K/mcL (4.3-11.1)
[2020-10-13 03:37] LABS: Calcium 8.9 mg/dL (8.6-10.3); Magnesium 2.2 mg/dL (1.6-2.6); Phosphorous 4.3 mg/dL (2.7-4.5); Potassium 3.6 mEq/L (3.5-5.1)
[2020-10-13] MEDS: *HR* Heparin 5,000 UNIT/ML VIAL SQ SCH ×3 (05:19→20:27)
[2020-10-13] MEDS ORDERED: 0.9 % Sodium Chloride 250 ML IVC PRN (07:01)
[2020-10-13] MEDS: Sennosides/Docusate Sodium TABLET PO SCH ×2 (09:23→20:27)
[2020-10-13] MEDS: Lactobacillus 1 EACH CAP.SPRINK PO SCH ×2 (09:25→20:27)
[2020-10-13] MEDS: polyethylene glycoL 3350 17 GM POWD.PACK PO SCH (09:26)
[2020-10-13] MEDS: Neosporin Opth OINT 3.5 GM TUBE LEFT EYE SCH ×4 (09:26→20:28)
[2020-10-13] MEDS: Calcium Acetate 667 MG CAPSULE PO SCH ×3 (09:35→17:34)
[2020-10-13] MEDS: Metoprolol XL (24 HR) Succ 25 MG TAB.ER.24H PO SCH ×2 (09:35→14:18)
[2020-10-13] MEDS: Acetaminophen 325 MG TABLET PO PRN (17:31)
[2020-10-14] MEDS: Insulin LISPRO 300 UNITS/3 ML VIAL SUBQ SCH ×5 (00:10→23:34)
[2020-10-14] MEDS: Piperacillin/Tazobactam 3.375 GM in 0.9 % Sodium Chloride Mini Bag 100 ML IVPB SCH ×2 (05:11→16:22)
[2020-10-14] MEDS: *HR* Heparin 5,000 UNIT/ML VIAL SQ SCH ×3 (05:12→20:42)
[2020-10-14 05:46] LABS: Basophils % 0.1 %; Eosinophils # 0.1 K/mcL (0.0-0.6); Eosinophils % 0.5 %; Hematocrit 28.1 % (35.3-44.9); Hemoglobin 8.5 g/dL (11.5-15.4); Immature Granulocytes % 1.7 % (0-4); Immature Platelets 10.8 % (1.1-6.1); Lymphocytes # 1.1 K/mcL (0.6-4.6); Lymphocytes % 5.6 %; Mean Corpuscular HGB Conc 30.2 g/dL (31.6-35.5); Mean Corpuscular Hemoglobin 31.5 pg (28.0-33.3); Mean Corpuscular Volume 104.1 fL (83.0-100.0); Mean Platelet Volume 11.8 fL (9.4-12.4); Monocytes # 1.1 K/mcL (0.0-1.3); Monocytes % 5.6 %; Neutrophils # 17.3 K/mcL (1.6-8.9); Nucleated Red Blood Cells 0.2 /100 WBC (0); Red Cell Distribution Width 19.4 % (11.5-14.5); Segmented Neutrophils % 86.5 %
[2020-10-14 05:52] LABS: Platelet Count 95 K/mcL (140-400)
[2020-10-14 06:01] LABS: Albumin 3.5 g/dL (3.5-5.7); Albumin/Globulin Ratio 1.5 (1.1-2.2); Bilirubin,Total 0.6 mg/dL (0.3-1.0); Calcium 9.1 mg/dL (8.6-10.3); Globulin 2.4 g/dL (2.4-3.5); Potassium 3.5 mEq/L (3.5-5.1); Total Protein 5.9 g/dL (6.4-8.9)
[2020-10-14 06:05] LABS: Magnesium 2.3 mg/dL (1.6-2.6); Potassium 3.5 mEq/L (3.5-5.1)
[2020-10-14] MEDS: polyethylene glycoL 3350 17 GM POWD.PACK PO SCH (07:48)
[2020-10-14] MEDS: Sennosides/Docusate Sodium TABLET PO SCH ×2 (07:48→20:41)
[2020-10-14] MEDS: Calcium Acetate 667 MG CAPSULE PO SCH ×3 (07:48→16:22)
[2020-10-14] MEDS: Lactobacillus 1 EACH CAP.SPRINK PO SCH ×2 (07:48→20:42)
[2020-10-14] MEDS: Metoprolol XL (24 HR) Succ 25 MG TAB.ER.24H PO SCH (07:48)
[2020-10-14] MEDS: Neosporin Opth OINT 3.5 GM TUBE LEFT EYE SCH ×4 (07:49→20:42)
[2020-10-15 03:40] LABS: Calcium 8.9 mg/dL (8.6-10.3); Potassium 3.5 mEq/L (3.5-5.1)
[2020-10-15 03:43] LABS: Basophils % 0.2 %; Eosinophils # 0.1 K/mcL (0.0-0.6); Eosinophils % 0.6 %; Hematocrit 27.5 % (35.3-44.9); Hemoglobin 8.3 g/dL (11.5-15.4); Immature Granulocytes % 1.6 % (0-4); Immature Platelets 9.6 % (1.1-6.1); Lymphocytes % 4.9 %; Mean Corpuscular HGB Conc 30.2 g/dL (31.6-35.5); Mean Corpuscular Hemoglobin 31.6 pg (28.0-33.3); Mean Corpuscular Volume 104.6 fL (83.0-100.0); Monocytes # 1.1 K/mcL (0.0-1.3); Monocytes % 5.3 %; Neutrophils # 17.4 K/mcL (1.6-8.9); Nucleated Red Blood Cells 0.5 /100 WBC (0); Platelet Count 99 K/mcL (140-400); Red Blood Count 2.63 M/mcL (3.82-4.97); Segmented Neutrophils % 87.4 %; White Blood Count 19.9 K/mcL (4.3-11.1)
[2020-10-15] MEDS: Piperacillin/Tazobactam 3.375 GM in 0.9 % Sodium Chloride Mini Bag 100 ML IVPB SCH ×2 (03:47→16:26)
[2020-10-15] MEDS: *HR* Heparin 5,000 UNIT/ML VIAL SQ SCH ×3 (05:14→21:12)
[2020-10-15] MEDS: Insulin LISPRO 300 UNITS/3 ML VIAL SUBQ SCH ×3 (05:53→19:23)
[2020-10-15] MEDS ORDERED: 0.9 % Sodium Chloride 250 ML IVC PRN (06:57)
[2020-10-15] MEDS: Neosporin Opth OINT 3.5 GM TUBE LEFT EYE SCH ×4 (09:22→21:12)
[2020-10-15] MEDS: Lactobacillus 1 EACH CAP.SPRINK PO SCH ×2 (09:22→21:12)
[2020-10-15] MEDS: Metoprolol XL (24 HR) Succ 25 MG TAB.ER.24H PO SCH (09:22)
[2020-10-15] MEDS: Sennosides/Docusate Sodium TABLET PO SCH ×2 (09:22→21:11)
[2020-10-15] MEDS: polyethylene glycoL 3350 17 GM POWD.PACK PO SCH (09:22)
[2020-10-15] MEDS: Calcium Acetate 667 MG CAPSULE PO SCH ×3 (09:22→17:16)
[2020-10-15] MEDS: Nystatin POWDER 30 GM BOTTLE TP SCH (21:13)
[2020-10-16] MEDS: Insulin LISPRO 300 UNITS/3 ML VIAL SUBQ SCH ×4 (00:20→18:31)
[2020-10-16 02:52] LABS: Basophils % 0.1 %; Hemoglobin 8.3 g/dL (11.5-15.4); Segmented Neutrophils % 87.1 %
[2020-10-16 02:54] LABS: Eosinophils # 0.2 K/mcL (0.0-0.6); Hematocrit 26.6 % (35.3-44.9); Immature Granulocytes % 1.2 % (0-4); Immature Platelets 10.3 % (1.1-6.1); Lymphocytes % 6.1 %; Mean Corpuscular HGB Conc 31.2 g/dL (31.6-35.5); Mean Corpuscular Hemoglobin 31.9 pg (28.0-33.3); Mean Corpuscular Volume 102.3 fL (83.0-100.0); Mean Platelet Volume 11.7 fL (9.4-12.4); Monocytes # 0.7 K/mcL (0.0-1.3); Monocytes % 4.5 %; Neutrophils # 14.4 K/mcL (1.6-8.9); Nucleated Red Blood Cells 0.9 /100 WBC (0); Red Cell Distribution Width 18.6 % (11.5-14.5); White Blood Count 16.5 K/mcL (4.3-11.1)
[2020-10-16 02:57] LABS: Platelet Count 90 K/mcL (140-400)
[2020-10-16] MEDS: Piperacillin/Tazobactam 3.375 GM in 0.9 % Sodium Chloride Mini Bag 100 ML IVPB SCH ×2 (03:45→16:20)
[2020-10-16 03:55] LABS: Calcium 8.8 mg/dL (8.6-10.3); Potassium 3.2 mEq/L (3.5-5.1)
[2020-10-16] MEDS: *HR* Heparin 5,000 UNIT/ML VIAL SQ SCH ×3 (05:47→20:44)
[2020-10-16] MEDS ORDERED: Potassium Chloride Elixir 20 MEQ/15 ML UDC PO ONE (07:23)
[2020-10-16] MEDS: Sennosides/Docusate Sodium TABLET PO SCH ×2 (07:40→20:44)
[2020-10-16] MEDS: polyethylene glycoL 3350 17 GM POWD.PACK PO SCH (07:40)
[2020-10-16] MEDS: Metoprolol XL (24 HR) Succ 25 MG TAB.ER.24H PO SCH (07:48)
[2020-10-16] MEDS: Lactobacillus 1 EACH CAP.SPRINK PO SCH ×2 (07:48→20:46)
[2020-10-16] MEDS: Calcium Acetate 667 MG CAPSULE PO SCH ×3 (09:00→17:33)
[2020-10-16] MEDS: Neosporin Opth OINT 3.5 GM TUBE LEFT EYE SCH ×4 (09:02→21:01)
[2020-10-16] MEDS: Nystatin POWDER 30 GM BOTTLE TP SCH ×2 (09:02→21:01)
[2020-10-16] MEDS: Ondansetron 4 MG/2 ML VIAL IVP PRN (17:37)
[2020-10-17] MEDS: Insulin LISPRO 300 UNITS/3 ML VIAL SUBQ SCH ×4 (00:05→18:36)
[2020-10-17] MEDS: Piperacillin/Tazobactam 3.375 GM in 0.9 % Sodium Chloride Mini Bag 100 ML IVPB SCH ×2 (04:54→16:00)
[2020-10-17 05:02] LABS: Eosinophils % 1.2 %; Nucleated Red Blood Cells 0.9 /100 WBC (0); Red Cell Distribution Width 18.6 % (11.5-14.5)
[2020-10-17 05:04] LABS: Basophils % 0.1 %; Eosinophils # 0.2 K/mcL (0.0-0.6); Hemoglobin 8.1 g/dL (11.5-15.4); Immature Granulocytes % 1.3 % (0-4); Immature Platelets 11.2 % (1.1-6.1); Lymphocytes # 1.1 K/mcL (0.6-4.6); Mean Corpuscular Hemoglobin 31.2 pg (28.0-33.3); Mean Corpuscular Volume 103.8 fL (83.0-100.0); Monocytes # 0.7 K/mcL (0.0-1.3); Neutrophils # 11.4 K/mcL (1.6-8.9); Segmented Neutrophils % 84.4 %; White Blood Count 13.5 K/mcL (4.3-11.1)
[2020-10-17 05:07] LABS: Platelet Count 87 K/mcL (140-400)
[2020-10-17] MEDS: *HR* Heparin 5,000 UNIT/ML VIAL SQ SCH ×3 (05:36→20:48)
[2020-10-17 06:17] LABS: Calcium 8.7 mg/dL (8.6-10.3); Potassium 3.4 mEq/L (3.5-5.1)
[2020-10-17] MEDS: Ondansetron 4 MG/2 ML VIAL IVP PRN (07:32)
[2020-10-17] MEDS: polyethylene glycoL 3350 17 GM POWD.PACK PO SCH (09:14)
[2020-10-17] MEDS: Sennosides/Docusate Sodium TABLET PO SCH ×2 (09:30→21:10)
[2020-10-17] MEDS: Calcium Acetate 667 MG CAPSULE PO SCH ×3 (09:30→17:09)
[2020-10-17] MEDS: Lactobacillus 1 EACH CAP.SPRINK PO SCH ×2 (09:30→21:09)
[2020-10-17] MEDS: Nystatin POWDER 30 GM BOTTLE TP SCH ×2 (09:34→22:51)
[2020-10-17] MEDS: Neosporin Opth OINT 3.5 GM TUBE LEFT EYE SCH ×4 (09:34→22:51)
[2020-10-17] MEDS: Metoprolol XL (24 HR) Succ 25 MG TAB.ER.24H PO SCH (11:30)
[2020-10-17] MEDS ORDERED: *HR* OxyCODONE Immed Rel 5 MG TABLET PO ONE (11:39)
[2020-10-17] MEDS: Acetaminophen 325 MG TABLET PO PRN (20:47)
[2020-10-18] MEDS: Insulin LISPRO 300 UNITS/3 ML VIAL SUBQ SCH ×4 (00:49→18:09)
[2020-10-18 03:16] LABS: Hematocrit 25.1 % (35.3-44.9); Hemoglobin 7.7 g/dL (11.5-15.4); Immature Platelets 8.9 % (1.1-6.1); Mean Corpuscular HGB Conc 30.7 g/dL (31.6-35.5); Mean Corpuscular Hemoglobin 32.2 pg (28.0-33.3); Mean Platelet Volume 12.2 fL (9.4-12.4); Red Blood Count 2.39 M/mcL (3.82-4.97); Red Cell Distribution Width 18.3 % (11.5-14.5); White Blood Count 13.3 K/mcL (4.3-11.1)
[2020-10-18] MEDS: Acetaminophen 325 MG TABLET PO PRN (03:54)
[2020-10-18] MEDS: Piperacillin/Tazobactam 3.375 GM in 0.9 % Sodium Chloride Mini Bag 100 ML IVPB SCH ×2 (03:54→18:04)
[2020-10-18 04:09] LABS: Calcium 8.5 mg/dL (8.6-10.3); Potassium 3.3 mEq/L (3.5-5.1)
[2020-10-18] MEDS: *HR* Heparin 5,000 UNIT/ML VIAL SQ SCH ×3 (05:44→21:16)
[2020-10-18] MEDS ORDERED: Potassium Chloride Elixir 20 MEQ/15 ML UDC PO ONE (07:14)
[2020-10-18] MEDS: Neosporin Opth OINT 3.5 GM TUBE LEFT EYE SCH ×4 (08:00→21:17)
[2020-10-18] MEDS: Ondansetron 4 MG/2 ML VIAL IVP SCH ×2 (09:00→21:16)
[2020-10-18] MEDS: Calcium Acetate 667 MG CAPSULE PO SCH ×3 (09:33→18:01)
[2020-10-18] MEDS: polyethylene glycoL 3350 17 GM POWD.PACK PO SCH (09:33)
[2020-10-18] MEDS: Lactobacillus 1 EACH CAP.SPRINK PO SCH ×2 (09:33→21:13)
[2020-10-18] MEDS: Sennosides/Docusate Sodium TABLET PO SCH ×2 (10:15→21:14)
[2020-10-18] MEDS: Nystatin POWDER 30 GM BOTTLE TP SCH ×2 (10:16→21:17)
[2020-10-18] MEDS: Metoprolol XL (24 HR) Succ 25 MG TAB.ER.24H PO SCH (10:17)
[2020-10-18] MEDS ORDERED: *HR* Heparin 10,000 UNIT/10 ML VIAL IV PRN (11:34)
[2020-10-18] MEDS ORDERED: 0.9 % Sodium Chloride 250 ML IVC PRN (11:34)
[2020-10-18] MEDS ORDERED: 0.9 % Sodium Chloride 1,000 ML PRIME SCH (11:45)
[2020-10-18] MEDS: Darbepoetin 100 MCG/0.5 ML SYRINGE SQ SCH (12:47)
[2020-10-19] MEDS: Insulin LISPRO 300 UNITS/3 ML VIAL SUBQ SCH ×4 (00:24→17:03)
[2020-10-19] MEDS: Acetaminophen 325 MG TABLET PO PRN (00:27)
[2020-10-19] MEDS: Piperacillin/Tazobactam 3.375 GM in 0.9 % Sodium Chloride Mini Bag 100 ML IVPB SCH ×2 (04:09→14:45)
[2020-10-19 04:33] LABS: Hematocrit 25.2 % (35.3-44.9); Hemoglobin 7.5 g/dL (11.5-15.4); Immature Platelets 11.1 % (1.1-6.1); Mean Corpuscular HGB Conc 29.8 g/dL (31.6-35.5); Mean Corpuscular Volume 104.1 fL (83.0-100.0); Mean Platelet Volume 11.5 fL (9.4-12.4); Red Blood Count 2.42 M/mcL (3.82-4.97); Red Cell Distribution Width 18.2 % (11.5-14.5); White Blood Count 15.1 K/mcL (4.3-11.1)
[2020-10-19 04:52] LABS: Calcium 8.9 mg/dL (8.6-10.3); Potassium 3.6 mEq/L (3.5-5.1)
[2020-10-19] MEDS: *HR* Heparin 5,000 UNIT/ML VIAL SQ SCH ×3 (05:38→21:15)
[2020-10-19] MEDS ORDERED: Isovue-370 500 ML BOTTLE IVP ONE (09:37)
[2020-10-19] MEDS: polyethylene glycoL 3350 17 GM POWD.PACK PO SCH (10:27)
[2020-10-19] MEDS: Neosporin Opth OINT 3.5 GM TUBE LEFT EYE SCH ×4 (10:28→21:14)
[2020-10-19] MEDS: Cyanocobalamin (B-12) 1,000 MCG/ML VIAL SQ SCH (10:28)
[2020-10-19] MEDS: Sennosides/Docusate Sodium TABLET PO SCH ×2 (10:28→21:15)
[2020-10-19] MEDS: Lactobacillus 1 EACH CAP.SPRINK PO SCH ×2 (10:28→21:14)
[2020-10-19] MEDS: Metoprolol XL (24 HR) Succ 25 MG TAB.ER.24H PO SCH (10:28)
[2020-10-19] MEDS: Calcium Acetate 667 MG CAPSULE PO SCH ×4 (10:28→15:53)
[2020-10-19] MEDS: Nystatin POWDER 30 GM BOTTLE TP SCH ×2 (10:28→21:15)
[2020-10-19] MEDS: Ondansetron 4 MG/2 ML VIAL IVP SCH ×2 (10:29→21:15)
[2020-10-19] MEDS: *HR* HYDROcodone/Acet 5/325 mg TABLET PO PRN (11:43)
[2020-10-20] MEDS: Insulin LISPRO 300 UNITS/3 ML VIAL SUBQ SCH ×2 (01:05→05:48)
[2020-10-20] MEDS: *HR* HYDROcodone/Acet 5/325 mg TABLET PO PRN (03:13)
[2020-10-20 03:43] LABS: Eosinophils % 1.6 %; Mean Corpuscular HGB Conc 29.5 g/dL (31.6-35.5)
[2020-10-20 03:45] LABS: Basophils % 0.2 %; Eosinophils # 0.2 K/mcL (0.0-0.6); Hematocrit 26.4 % (35.3-44.9); Hemoglobin 7.8 g/dL (11.5-15.4); Immature Granulocytes % 1.1 % (0-4); Immature Platelets 8.7 % (1.1-6.1); Lymphocytes % 8.7 %; Mean Corpuscular Hemoglobin 31.2 pg (28.0-33.3); Mean Corpuscular Volume 105.6 fL (83.0-100.0); Mean Platelet Volume 11.9 fL (9.4-12.4); Monocytes # 0.8 K/mcL (0.0-1.3); Monocytes % 6.2 %; Nucleated Red Blood Cells 0.5 /100 WBC (0); Red Cell Distribution Width 18.2 % (11.5-14.5); Segmented Neutrophils % 82.2 %; White Blood Count 13.2 K/mcL (4.3-11.1)
[2020-10-20 03:48] LABS: Lymphocytes # 1.2 K/mcL (0.6-4.6); Neutrophils # 10.9 K/mcL (1.6-8.9); Platelet Count 99 K/mcL (140-400)
[2020-10-20 03:57] LABS: Albumin 3.1 g/dL (3.5-5.7); Albumin/Globulin Ratio 1.1 (1.1-2.2); Bilirubin,Total 0.5 mg/dL (0.3-1.0); Calcium 8.7 mg/dL (8.6-10.3); Globulin 2.8 g/dL (2.4-3.5); Potassium 3.7 mEq/L (3.5-5.1); Total Protein 5.9 g/dL (6.4-8.9)
[2020-10-20] MEDS: Piperacillin/Tazobactam 3.375 GM in 0.9 % Sodium Chloride Mini Bag 100 ML IVPB SCH ×2 (04:14→17:19)
[2020-10-20] MEDS: *HR* Heparin 5,000 UNIT/ML VIAL SQ SCH ×3 (05:48→20:53)
[2020-10-20] MEDS ORDERED: 0.9 % Sodium Chloride 250 ML IVC PRN (07:19)
[2020-10-20] MEDS ORDERED: *HR* Heparin 10,000 UNIT/10 ML VIAL IV PRN (07:19)
[2020-10-20] MEDS ORDERED: 0.9 % Sodium Chloride 1,000 ML PRIME SCH (07:30)
[2020-10-20] MEDS: polyethylene glycoL 3350 17 GM POWD.PACK PO SCH (07:59)
[2020-10-20] MEDS: Sennosides/Docusate Sodium TABLET PO SCH ×2 (08:00→20:54)
[2020-10-20] MEDS ORDERED: Albumin 25% 25gram/100mL 25 GM/100 ML IV.SOLN IVPB ONE (08:04)
[2020-10-20] MEDS: Nystatin POWDER 30 GM BOTTLE TP SCH ×2 (08:11→20:53)
[2020-10-20] MEDS: Neosporin Opth OINT 3.5 GM TUBE LEFT EYE SCH (08:11)
[2020-10-20] MEDS: Cyanocobalamin (B-12) 1,000 MCG/ML VIAL SQ SCH (08:12)
[2020-10-20] MEDS: Ondansetron 4 MG/2 ML VIAL IVP SCH ×2 (08:15→20:52)
[2020-10-20] MEDS: Calcium Acetate 667 MG CAPSULE PO SCH ×3 (08:15→17:21)
[2020-10-20] MEDS: Lactobacillus 1 EACH CAP.SPRINK PO SCH ×2 (08:15→20:53)
[2020-10-20 12:32] LABS: Hematocrit 26.9 % (35.3-44.9); Hemoglobin 7.8 g/dL (11.5-15.4)
[2020-10-20] MEDS: Metoprolol XL (24 HR) Succ 25 MG TAB.ER.24H PO SCH (13:39)
[2020-10-21] MEDS: Piperacillin/Tazobactam 3.375 GM in 0.9 % Sodium Chloride Mini Bag 100 ML IVPB SCH ×2 (04:04→16:48)
[2020-10-21] MEDS: *HR* Heparin 5,000 UNIT/ML VIAL SQ SCH ×3 (04:05→20:35)
[2020-10-21 04:32] LABS: Hematocrit 24.6 % (35.3-44.9); Hemoglobin 7.3 g/dL (11.5-15.4); Immature Platelets 10.8 % (1.1-6.1); Mean Corpuscular HGB Conc 29.7 g/dL (31.6-35.5); Mean Corpuscular Hemoglobin 30.8 pg (28.0-33.3); Mean Corpuscular Volume 103.8 fL (83.0-100.0); Mean Platelet Volume 11.8 fL (9.4-12.4); Red Blood Count 2.37 M/mcL (3.82-4.97); Red Cell Distribution Width 17.9 % (11.5-14.5); White Blood Count 11.4 K/mcL (4.3-11.1)
[2020-10-21 04:47] LABS: Calcium 9.2 mg/dL (8.6-10.3); Potassium 3.9 mEq/L (3.5-5.1)
[2020-10-21] MEDS: Metoprolol XL (24 HR) Succ 25 MG TAB.ER.24H PO SCH (07:50)
[2020-10-21] MEDS: polyethylene glycoL 3350 17 GM POWD.PACK PO SCH (07:50)
[2020-10-21] MEDS: Lactobacillus 1 EACH CAP.SPRINK PO SCH ×2 (07:51→20:35)
[2020-10-21] MEDS: Calcium Acetate 667 MG CAPSULE PO SCH ×4 (07:51→16:49)
[2020-10-21] MEDS: Ondansetron 4 MG/2 ML VIAL IVP SCH ×2 (07:51→20:35)
[2020-10-21] MEDS: Cyanocobalamin (B-12) 1,000 MCG/ML VIAL SQ SCH (07:51)
[2020-10-21] MEDS: Nystatin POWDER 30 GM BOTTLE TP SCH ×2 (07:52→20:36)
[2020-10-21] MEDS: Sennosides/Docusate Sodium TABLET PO SCH ×2 (07:52→20:47)
[2020-10-21] MEDS: *HR* HYDROcodone/Acet 5/325 mg TABLET PO PRN ×2 (11:11→20:36)
[2020-10-21 23:27] LABS: Influenza A PCR Negative (Negative); Influenza B PCR Negative (Negative); Resp. Syncytial Virus PCR Negative (Negative)
[2020-10-21 23:30] LABS: SARS-CoV-2 by PCR (In House) Negative (Negative)
[2020-10-22] MEDS: Piperacillin/Tazobactam 3.375 GM in 0.9 % Sodium Chloride Mini Bag 100 ML IVPB SCH (04:18)
[2020-10-22] MEDS: *HR* Heparin 5,000 UNIT/ML VIAL SQ SCH (04:27)
[2020-10-22 04:41] LABS: Hematocrit 24.5 % (35.3-44.9); Hemoglobin 7.1 g/dL (11.5-15.4); Mean Corpuscular Hemoglobin 30.3 pg (28.0-33.3); Mean Corpuscular Volume 104.7 fL (83.0-100.0); Red Blood Count 2.34 M/mcL (3.82-4.97); Red Cell Distribution Width 17.9 % (11.5-14.5); White Blood Count 10.8 K/mcL (4.3-11.1)
[2020-10-22 04:42] LABS: Platelet Count 99 K/mcL (140-400)
[2020-10-22 05:01] LABS: Potassium 3.8 mEq/L (3.5-5.1)
[2020-10-22] MEDS ORDERED: 0.9 % Sodium Chloride 250 ML IVC PRN (07:06)
[2020-10-22] MEDS ORDERED: *HR* Heparin 10,000 UNIT/10 ML VIAL IV PRN (07:06)
[2020-10-22] MEDS ORDERED: Lidocaine -MPF 2% 2 ML VIAL ONE (07:35)
[2020-10-22] MEDS ORDERED: *HR* Propofol 200 MG/20 ML VIAL IVP ONE ×4 (07:36→12:36)
[2020-10-22] MEDS ORDERED: *HR* Etomidate 40 MG/20 ML VIAL IVP ONE ×2 (07:54→12:36)
[2020-10-22] MEDS: Cyanocobalamin (B-12) 1,000 MCG/ML VIAL SQ SCH (11:00)
[2020-10-22] MEDS: Nystatin POWDER 30 GM BOTTLE TP SCH ×2 (11:01→20:15)
[2020-10-22] MEDS: Sennosides/Docusate Sodium TABLET PO SCH ×2 (11:01→20:16)
[2020-10-22] MEDS: Metoprolol XL (24 HR) Succ 25 MG TAB.ER.24H PO SCH (11:01)
[2020-10-22] MEDS: Ondansetron 4 MG/2 ML VIAL IVP SCH ×2 (11:01→20:14)
[2020-10-22] MEDS: Calcium Acetate 667 MG CAPSULE PO SCH ×3 (11:01→17:07)
[2020-10-22] MEDS: polyethylene glycoL 3350 17 GM POWD.PACK PO SCH (11:01)
[2020-10-22] MEDS: Lactobacillus 1 EACH CAP.SPRINK PO SCH ×2 (11:12→20:15)
[2020-10-22] MEDS ORDERED: Ondansetron 4 MG/2 ML VIAL ONE (12:14)
[2020-10-22] MEDS ORDERED: Ondansetron 4 MG/2 ML VIAL IVP PRN (12:19)
[2020-10-22] MEDS ORDERED: *HR* PHENYLEPHRINE 1,000 MCG/10 ML SYRINGE IVP ONE (12:36)
[2020-10-22] MEDS ORDERED: *HR* Vasopressin 20 UNIT/ML VIAL ONE (12:40)
[2020-10-22] MEDS: Acetaminophen 325 MG TABLET PO PRN (17:04)
[2020-10-23 03:46] LABS: Basophils % 0.2 %; Immature Granulocytes % 0.9 % (0-4); Red Cell Distribution Width 18.3 % (11.5-14.5)
[2020-10-23 03:48] LABS: Eosinophils # 0.2 K/mcL (0.0-0.6); Eosinophils % 1.8 %; Hemoglobin 7.1 g/dL (11.5-15.4); Immature Platelets 8.5 % (1.1-6.1); Lymphocytes # 1.1 K/mcL (0.6-4.6); Lymphocytes % 10.1 %; Mean Corpuscular HGB Conc 29.6 g/dL (31.6-35.5); Mean Corpuscular Hemoglobin 30.6 pg (28.0-33.3); Mean Corpuscular Volume 103.4 fL (83.0-100.0); Mean Platelet Volume 11.6 fL (9.4-12.4); Monocytes # 0.8 K/mcL (0.0-1.3); Monocytes % 7.9 %; Neutrophils # 8.2 K/mcL (1.6-8.9); Nucleated Red Blood Cells 0.7 /100 WBC (0); Platelet Count 114 K/mcL (140-400); Red Blood Count 2.32 M/mcL (3.82-4.97); Segmented Neutrophils % 79.1 %; White Blood Count 10.4 K/mcL (4.3-11.1)
[2020-10-23 04:03] LABS: Calcium 8.8 mg/dL (8.6-10.3); Potassium 3.5 mEq/L (3.5-5.1)
[2020-10-23] MEDS: Calcium Acetate 667 MG CAPSULE PO SCH ×3 (09:45→17:37)
[2020-10-23] MEDS: Ondansetron 4 MG/2 ML VIAL IVP SCH ×2 (09:45→20:34)
[2020-10-23] MEDS: polyethylene glycoL 3350 17 GM POWD.PACK PO SCH (09:45)
[2020-10-23] MEDS: Sennosides/Docusate Sodium TABLET PO SCH ×2 (09:46→20:33)
[2020-10-23] MEDS: Metoprolol XL (24 HR) Succ 25 MG TAB.ER.24H PO SCH (09:46)
[2020-10-23] MEDS: Lactobacillus 1 EACH CAP.SPRINK PO SCH ×2 (09:46→20:34)
[2020-10-23] MEDS: Nystatin POWDER 30 GM BOTTLE TP SCH ×2 (09:47→20:34)
[2020-10-24 05:07] LABS: Basophils % 0.1 %; Eosinophils # 0.3 K/mcL (0.0-0.6); Eosinophils % 2.8 %; Hematocrit 23.6 % (35.3-44.9); Immature Granulocytes % 0.9 % (0-4); Mean Corpuscular HGB Conc 29.7 g/dL (31.6-35.5); Mean Corpuscular Hemoglobin 31.3 pg (28.0-33.3); Mean Corpuscular Volume 105.4 fL (83.0-100.0); Mean Platelet Volume 11.4 fL (9.4-12.4); Monocytes # 0.7 K/mcL (0.0-1.3); Monocytes % 7.6 %; Neutrophils # 7.5 K/mcL (1.6-8.9); Nucleated Red Blood Cells 0.6 /100 WBC (0); Platelet Count 109 K/mcL (140-400); Red Blood Count 2.24 M/mcL (3.82-4.97); Red Cell Distribution Width 18.2 % (11.5-14.5); Segmented Neutrophils % 78.6 %; White Blood Count 9.5 K/mcL (4.3-11.1)
[2020-10-24 05:28] LABS: Calcium 8.8 mg/dL (8.6-10.3); Potassium 3.3 mEq/L (3.5-5.1)
[2020-10-24] MEDS: Lactobacillus 1 EACH CAP.SPRINK PO SCH ×2 (07:52→21:15)
[2020-10-24] MEDS: Metoprolol XL (24 HR) Succ 25 MG TAB.ER.24H PO SCH (07:53)
[2020-10-24] MEDS: polyethylene glycoL 3350 17 GM POWD.PACK PO SCH (07:53)
[2020-10-24] MEDS: Calcium Acetate 667 MG CAPSULE PO SCH ×3 (07:53→16:35)
[2020-10-24] MEDS: Sennosides/Docusate Sodium TABLET PO SCH ×2 (07:53→21:15)
[2020-10-24] MEDS: Ondansetron 4 MG/2 ML VIAL IVP SCH ×2 (07:54→21:16)
[2020-10-24] MEDS: Nystatin POWDER 30 GM BOTTLE TP SCH ×2 (09:42→21:16)
[2020-10-24] MEDS: *HR* HYDROcodone/Acet 5/325 mg TABLET PO PRN ×2 (10:41→21:21)
[2020-10-24 10:50] LABS: Hemoglobin 7.1 g/dL (11.5-15.4)
[2020-10-24 10:52] LABS: Hematocrit 23.6 % (35.3-44.9)
[2020-10-24] MEDS ORDERED: Artificial Tears SOLN 15 ML BOTTLE LEFT EYE PRN (11:05)
[2020-10-25 05:46] LABS: Basophils % 0.3 %; Eosinophils # 0.3 K/mcL (0.0-0.6); Eosinophils % 3.3 %; Hematocrit 23.5 % (35.3-44.9); Hemoglobin 6.8 g/dL (11.5-15.4); Immature Granulocytes % 1.1 % (0-4); Lymphocytes % 10.4 %; Mean Corpuscular HGB Conc 28.9 g/dL (31.6-35.5); Mean Corpuscular Hemoglobin 30.2 pg (28.0-33.3); Mean Corpuscular Volume 104.4 fL (83.0-100.0); Mean Platelet Volume 11.6 fL (9.4-12.4); Monocytes # 0.7 K/mcL (0.0-1.3); Neutrophils # 7.7 K/mcL (1.6-8.9); Nucleated Red Blood Cells 0.6 /100 WBC (0); Platelet Count 123 K/mcL (140-400); Red Blood Count 2.25 M/mcL (3.82-4.97); Red Cell Distribution Width 18.5 % (11.5-14.5); Segmented Neutrophils % 77.9 %; White Blood Count 9.9 K/mcL (4.3-11.1)
[2020-10-25 06:10] LABS: Anisocytosis 1+ (Not Present); Hypochromasia Present (Not Present); Platelet Estimate Slight Decrease (Normal); Target Cells 1+ (Not Present)
[2020-10-25 06:12] LABS: Calcium 8.9 mg/dL (8.6-10.3); Potassium 3.6 mEq/L (3.5-5.1)
[2020-10-25] MEDS ORDERED: 0.9 % Sodium Chloride 250 ML IVC SCH (07:15)
[2020-10-25] MEDS: Ondansetron 4 MG/2 ML VIAL IVP SCH ×2 (08:23→20:51)
[2020-10-25] MEDS ORDERED: *HR* Heparin 10,000 UNIT/10 ML VIAL IV PRN (08:25)
[2020-10-25] MEDS: Metoprolol XL (24 HR) Succ 25 MG TAB.ER.24H PO SCH (08:25)
[2020-10-25] MEDS: Calcium Acetate 667 MG CAPSULE PO SCH ×3 (08:25→17:13)
[2020-10-25] MEDS: *HR* HYDROcodone/Acet 5/325 mg TABLET PO PRN ×3 (08:25→23:40)
[2020-10-25] MEDS ORDERED: 0.9 % Sodium Chloride 250 ML IVC PRN (08:25)
[2020-10-25] MEDS: Lactobacillus 1 EACH CAP.SPRINK PO SCH ×2 (08:25→20:51)
[2020-10-25] MEDS: Sennosides/Docusate Sodium TABLET PO SCH ×2 (08:26→20:52)
[2020-10-25] MEDS: Nystatin POWDER 30 GM BOTTLE TP SCH ×2 (08:26→20:52)
[2020-10-25] MEDS: polyethylene glycoL 3350 17 GM POWD.PACK PO SCH (08:26)
[2020-10-25] MEDS: Darbepoetin 100 MCG/0.5 ML SYRINGE SQ SCH (08:35)
[2020-10-25 12:53] LABS: Hematocrit 27.3 % (35.3-44.9); Hemoglobin 8.4 g/dL (11.5-15.4)
[2020-10-25] MEDS ORDERED: Metoclopramide 10 MG/2 ML VIAL IVP STA (17:38)
[2020-10-25] MEDS: Acetaminophen 325 MG TABLET PO PRN (20:51)
[2020-10-26 03:52] LABS: Hematocrit 25.5 % (35.3-44.9); Hemoglobin 7.7 g/dL (11.5-15.4); Mean Corpuscular HGB Conc 30.2 g/dL (31.6-35.5); Mean Corpuscular Hemoglobin 30.7 pg (28.0-33.3); Mean Corpuscular Volume 101.6 fL (83.0-100.0); Mean Platelet Volume 11.5 fL (9.4-12.4); Platelet Count 129 K/mcL (140-400); Red Blood Count 2.51 M/mcL (3.82-4.97); Red Cell Distribution Width 18.5 % (11.5-14.5); White Blood Count 11.7 K/mcL (4.3-11.1)
[2020-10-26 04:01] LABS: Calcium 8.8 mg/dL (8.6-10.3); Potassium 3.5 mEq/L (3.5-5.1)
[2020-10-26] MEDS: *HR* HYDROcodone/Acet 5/325 mg TABLET PO PRN ×2 (06:53→17:57)
[2020-10-26] MEDS: Ondansetron 4 MG/2 ML VIAL IVP SCH ×2 (08:46→19:51)
[2020-10-26] MEDS: Calcium Acetate 667 MG CAPSULE PO SCH ×3 (08:50→17:00)
[2020-10-26] MEDS: Metoprolol XL (24 HR) Succ 25 MG TAB.ER.24H PO SCH (09:02)
[2020-10-26] MEDS: Lactobacillus 1 EACH CAP.SPRINK PO SCH ×2 (09:02→19:51)
[2020-10-26] MEDS: Nystatin POWDER 30 GM BOTTLE TP SCH ×2 (09:03→19:51)
[2020-10-26] MEDS: polyethylene glycoL 3350 17 GM POWD.PACK PO SCH (09:03)
[2020-10-26] MEDS: Sennosides/Docusate Sodium TABLET PO SCH ×2 (09:05→19:45)
[2020-10-27] MEDS: *HR* HYDROcodone/Acet 5/325 mg TABLET PO PRN ×2 (01:12→08:34)
[2020-10-27 04:08] LABS: Hematocrit 25.5 % (35.3-44.9); Hemoglobin 7.7 g/dL (11.5-15.4); Mean Corpuscular HGB Conc 30.2 g/dL (31.6-35.5); Mean Corpuscular Hemoglobin 30.7 pg (28.0-33.3); Mean Corpuscular Volume 101.6 fL (83.0-100.0); Mean Platelet Volume 11.3 fL (9.4-12.4); Platelet Count 151 K/mcL (140-400); Red Blood Count 2.51 M/mcL (3.82-4.97); Red Cell Distribution Width 18.2 % (11.5-14.5); White Blood Count 11.5 K/mcL (4.3-11.1)
[2020-10-27 04:32] LABS: Calcium 8.9 mg/dL (8.6-10.3); Potassium 3.6 mEq/L (3.5-5.1)
[2020-10-27] MEDS ORDERED: *HR* Heparin 10,000 UNIT/10 ML VIAL IV PRN (07:32)
[2020-10-27] MEDS ORDERED: 0.9 % Sodium Chloride 250 ML IVC PRN (07:32)
[2020-10-27] MEDS ORDERED: 0.9 % Sodium Chloride 1,000 ML PRIME SCH (07:45)
[2020-10-27] MEDS: Lactobacillus 1 EACH CAP.SPRINK PO SCH ×2 (08:36→21:05)
[2020-10-27] MEDS: Calcium Acetate 667 MG CAPSULE PO SCH ×3 (08:36→18:12)
[2020-10-27] MEDS: polyethylene glycoL 3350 17 GM POWD.PACK PO SCH (08:36)
[2020-10-27] MEDS: Nystatin POWDER 30 GM BOTTLE TP SCH ×2 (08:36→21:05)
[2020-10-27] MEDS: Metoprolol XL (24 HR) Succ 25 MG TAB.ER.24H PO SCH (08:37)
[2020-10-27] MEDS: Ondansetron 4 MG/2 ML VIAL IVP SCH ×2 (08:37→20:49)
[2020-10-27] MEDS: Sennosides/Docusate Sodium TABLET PO SCH ×2 (08:37→21:05)
[2020-10-27] MEDS ORDERED: Cyanocobalamin (B-12) 1,000 MCG/ML VIAL IM ONE (10:24)
[2020-10-27] MEDS: *HR* OxyCODONE Immed Rel 5 MG TABLET PO PRN ×3 (13:16→20:49)
[2020-10-28] MEDS: *HR* OxyCODONE Immed Rel 5 MG TABLET PO PRN ×2 (01:56→05:19)
[2020-10-28 03:19] LABS: Hematocrit 26.3 % (35.3-44.9); Hemoglobin 7.8 g/dL (11.5-15.4); Mean Corpuscular HGB Conc 29.7 g/dL (31.6-35.5); Mean Corpuscular Hemoglobin 29.9 pg (28.0-33.3); Mean Corpuscular Volume 100.8 fL (83.0-100.0); Mean Platelet Volume 11.2 fL (9.4-12.4); Platelet Count 162 K/mcL (140-400); Red Blood Count 2.61 M/mcL (3.82-4.97); Red Cell Distribution Width 18.3 % (11.5-14.5); White Blood Count 13.1 K/mcL (4.3-11.1)
[2020-10-28 03:27] LABS: Calcium 9.3 mg/dL (8.6-10.3); Potassium 3.6 mEq/L (3.5-5.1)
[2020-10-28 03:32] LABS: Magnesium 1.8 mg/dL (1.6-2.6); Phosphorous 2.9 mg/dL (2.7-4.5)
[2020-10-28] MEDS: Metoprolol XL (24 HR) Succ 25 MG TAB.ER.24H PO SCH (07:25)
[2020-10-28] MEDS: Sennosides/Docusate Sodium TABLET PO SCH (07:25)
[2020-10-28] MEDS: polyethylene glycoL 3350 17 GM POWD.PACK PO SCH (07:25)
[2020-10-28] MEDS: Lactobacillus 1 EACH CAP.SPRINK PO SCH ×2 (07:26→07:38)
[2020-10-28] MEDS: Calcium Acetate 667 MG CAPSULE PO SCH ×3 (07:26→12:49)
[2020-10-28] MEDS: Ondansetron 4 MG/2 ML VIAL IVP SCH (07:28)
[2020-10-28] MEDS: Nystatin POWDER 30 GM BOTTLE TP SCH (07:29)
[2020-10-28] MEDS ORDERED: Cyanocobalamin (B-12) 1,000 MCG TABLET PO SCH (09:00)
[2020-10-28 16:22] VITALS: BP 92/58
[2020-10-28 17:01] LABS: Adenovirus Not Detected (Not Detect); Bordetella Pertussis Not Detected (Not Detect); Chlamydophila pneumoniae Not Detected (Not Detect); Coronavirus 229E Not Detected (Not Detect); Coronavirus HKU1 Not Detected (Not Detect); Coronavirus NL63 Not Detected (Not Detect); Coronavirus OC43 Not Detected (Not Detect); Human Metapneumovirus Not Detected (Not Detect); Human Rhinovirus/Enterovirus Not Detected (Not Detect); Influenza A Subtype 2009 H1 Not Detected (Not Detect); Influenza B Not Detected (Not Detect); Mycoplasma pneumoniae Not Detected (Not Detect); Parainfluenza Virus 1 Not Detected (Not Detect); Parainfluenza Virus 2 Not Detected (Not Detect); Parainfluenza Virus 3 Not Detected (Not Detect); Parainfluenza Virus 4 Not Detected (Not Detect); Respiratory Syncytial Virus Not Detected (Not Detect); SARS-CoV-2 Not Detected (Not Detect)
[2020-11-01] MEDS ORDERED: Darbepoetin 150 MCG/0.3 ML SYRINGE SQ SCH (09:00)
== END 2020-10-28 18:00 | DRG 551 ==
LOC: EMEROOARM 16:19 → 2ANU 16:19 → SUATTDRO 18:51 → 2ANU 21:00 → SUATTDRO 09-27 16:19 → ICNU 10-01 13:41 → 2ANU 10-02 09:30 → 2NNU 10-02 19:36 → 2ANU 10-07 21:25
PROVIDERS: ADMIT Student in an Organized Health Care Education/Training Program; ATTEND Internal Medicine
PROC: ENDOEBX (2020-10-22 12:30)

== ENCOUNTER 2020-11-11 11:09 | Inpatient (IN) ==
[2020-11-11 16:10] LABS: Albumin 2.6 g/dL (3.5-5.7); Albumin/Globulin Ratio 0.7 (1.1-2.2); Bilirubin,Total 0.4 mg/dL (0.3-1.0); Calcium 10.2 mg/dL (8.6-10.3); Globulin 3.5 g/dL (2.4-3.5); Potassium 4.1 mEq/L (3.5-5.1); Total Protein 6.1 g/dL (6.4-8.9); Troponin I 0.15 ng/mL (< 0.04)
[2020-11-11 16:44] LABS: Clarity,Urine Ex.Turbid (Clear); Color,Urine Brown (Yellow)
[2020-11-11 16:51] LABS: INR 1.1; Prothrombin Time 12.7 Seconds (9.4-12.1)
[2020-11-11 16:58] LABS: Amorphous Sediment,Urine Present per hpf (None-Few); Mucus,Urine Present per lpf (None-Few); RBC,Urine Present per hpf (0-3); Squamous Epithelial Cell,Urine Present per hpf (None-Few); WBC,Urine Present per hpf (0-3)
[2020-11-11 16:59] LABS: Bacteria,Urine Present per hpf (None-Few)
[2020-11-11] MEDS ORDERED: Piperacillin/Tazobactam 3.375 GM in 0.9 % Sodium Chloride Mini Bag 100 ML IVPB ONE (17:08)
[2020-11-11] MEDS ORDERED: 0.9 % Sodium Chloride 250 ML IVC ONE (17:09)
[2020-11-11 17:26] LABS: Basophils # 0.1 K/mcL (0.0-0.2); Basophils % 0.4 %; Eosinophils # 0.2 K/mcL (0.0-0.6); Eosinophils % 0.8 %; Hematocrit 24.4 % (35.3-44.9); Hemoglobin 7.1 g/dL (11.5-15.4); Immature Granulocytes % 3.9 % (0-4); Lymphocytes # 1.5 K/mcL (0.6-4.6); Lymphocytes % 7.8 %; Mean Corpuscular HGB Conc 29.1 g/dL (31.6-35.5); Mean Corpuscular Hemoglobin 28.9 pg (28.0-33.3); Mean Corpuscular Volume 99.2 fL (83.0-100.0); Mean Platelet Volume 10.7 fL (9.4-12.4); Monocytes % 5.5 %; Neutrophils # 15.6 K/mcL (1.6-8.9); Nucleated Red Blood Cells 0.5 /100 WBC (0); Platelet Count 403 K/mcL (140-400); Red Blood Count 2.46 M/mcL (3.82-4.97); Red Cell Distribution Width 19.7 % (11.5-14.5); Segmented Neutrophils % 81.6 %; White Blood Count 19.1 K/mcL (4.3-11.1)
[2020-11-11] MEDS ORDERED: 0.9 % Sodium Chloride 1,000 ML IVC ONE (17:34)
[2020-11-11] MEDS ORDERED: Naloxone 0.4 MG/ML INJ IVP PRN (18:10)
[2020-11-11] MEDS ORDERED: *HR* Dextrose 50 % in Water (Vial) 50 ML VIAL IVP PRN (21:29)
[2020-11-11] MEDS ORDERED: D5% in Water 1,000 ML IVC PRN (21:29)
[2020-11-11] MEDS ORDERED: Dextrose Gel 15 GM/37.5 ML TUBE PO PRN ×2 (21:29)
[2020-11-11] MEDS: Acetaminophen 325 MG TABLET PO PRN (22:42)
[2020-11-11] MEDS: Sennosides/Docusate Sodium TABLET PO SCH (22:43)
[2020-11-11] MEDS: Lactobacillus 1 EACH CAP.SPRINK PO SCH (22:43)
[2020-11-11] MEDS: *HR* Heparin 5,000 UNIT/ML VIAL SQ SCH (22:43)
[2020-11-11] MEDS: Moxifloxacin OPTH Drops 3 ML BOTTLE BOTH EYES SCH (22:44)
[2020-11-11] MEDS: Nystatin POWDER 30 GM BOTTLE TP SCH (22:45)
[2020-11-12 05:03] LABS: Basophils % 0.4 %
[2020-11-12 05:05] LABS: Basophils # 0.1 K/mcL (0.0-0.2); Eosinophils # 0.1 K/mcL (0.0-0.6); Eosinophils % 0.6 %; Hematocrit 21.3 % (35.3-44.9); Hemoglobin 6.3 g/dL (11.5-15.4); Immature Granulocytes % 3.7 % (0-4); Lymphocytes # 1.8 K/mcL (0.6-4.6); Lymphocytes % 10.1 %; Mean Corpuscular HGB Conc 29.6 g/dL (31.6-35.5); Mean Corpuscular Volume 101.4 fL (83.0-100.0); Mean Platelet Volume 10.9 fL (9.4-12.4); Monocytes # 1.1 K/mcL (0.0-1.3); Monocytes % 5.8 %; Neutrophils # 14.5 K/mcL (1.6-8.9); Nucleated Red Blood Cells 0.5 /100 WBC (0); Platelet Count 331 K/mcL (140-400); Red Cell Distribution Width 19.8 % (11.5-14.5); Segmented Neutrophils % 79.4 %; White Blood Count 18.2 K/mcL (4.3-11.1)
[2020-11-12 05:13] LABS: Calcium 9.5 mg/dL (8.6-10.3); Potassium 4.1 mEq/L (3.5-5.1)
[2020-11-12 05:27] LABS: Hypochromasia Present (Not Present); Large Platelets Present (Not Present)
[2020-11-12 05:28] LABS: Anisocytosis 1+ (Not Present); Platelet Estimate Normal (Normal)
[2020-11-12] MEDS: *HR* Heparin 5,000 UNIT/ML VIAL SQ SCH ×3 (06:31→20:57)
[2020-11-12] MEDS ORDERED: 0.9 % Sodium Chloride 500 ML IVC SCH (07:45)
[2020-11-12] MEDS ORDERED: Calcium Acetate 667 MG CAPSULE PO SCH (08:00)
[2020-11-12] MEDS ORDERED: 0.9 % Sodium Chloride 500 ML IVC ONE (08:02)
[2020-11-12] MEDS: Lactobacillus 1 EACH CAP.SPRINK PO SCH ×2 (08:21→20:56)
[2020-11-12] MEDS: Acetaminophen 325 MG TABLET PO PRN (08:24)
[2020-11-12] MEDS: Metoprolol XL (24 HR) Succ 25 MG TAB.ER.24H PO SCH ×2 (08:24→08:30)
[2020-11-12] MEDS: Sennosides/Docusate Sodium TABLET PO SCH ×2 (08:24→20:57)
[2020-11-12] MEDS: Nystatin POWDER 30 GM BOTTLE TP SCH ×2 (08:26→21:07)
[2020-11-12] MEDS: Moxifloxacin OPTH Drops 3 ML BOTTLE BOTH EYES SCH ×3 (08:26→22:06)
[2020-11-12] MEDS: (Sucroferric Oxyhydroxide [Velphoro] 500 MG Tab.Chew) PO SCH ×3 (08:27→17:05)
[2020-11-12 09:15] LABS: Hepatitis B Surface Antibody < 3.10 mIU/mL
[2020-11-12 09:26] LABS: Hepatitis B Surface Antigen Nonreactive (Nonreactive)
[2020-11-12] MEDS ORDERED: *HR* Heparin 10,000 UNIT/10 ML VIAL IV PRN (09:44)
[2020-11-12] MEDS ORDERED: 0.9 % Sodium Chloride 250 ML IVC PRN (09:44)
[2020-11-12] MEDS ORDERED: 0.9 % Sodium Chloride 1,000 ML PRIME SCH (09:45)
[2020-11-12] MEDS ORDERED: Piperacillin/Tazobactam 3.375 GM in 0.9 % Sodium Chloride Mini Bag 100 ML IVPB SCH (11:00)
[2020-11-12] MEDS: *HR* OxyCODONE Immed Rel 5 MG TABLET PO PRN ×2 (14:22→20:57)
[2020-11-12] MEDS: Piperacillin/Tazobactam 3.375 GM in 0.9 % Sodium Chloride Mini Bag 100 ML IVPB SCH (17:59)
[2020-11-13] MEDS: Piperacillin/Tazobactam 3.375 GM in 0.9 % Sodium Chloride Mini Bag 100 ML IVPB SCH ×2 (05:11→17:38)
[2020-11-13] MEDS: *HR* Heparin 5,000 UNIT/ML VIAL SQ SCH ×3 (05:12→21:42)
[2020-11-13 07:03] LABS: Basophils # 0.1 K/mcL (0.0-0.2); Basophils % 0.6 %; Eosinophils # 0.1 K/mcL (0.0-0.6); Eosinophils % 0.8 %; Hematocrit 28.2 % (35.3-44.9); Immature Granulocytes % 4.1 % (0-4); Lymphocytes # 1.8 K/mcL (0.6-4.6); Lymphocytes % 9.9 %; Mean Corpuscular HGB Conc 30.9 g/dL (31.6-35.5); Mean Corpuscular Hemoglobin 29.8 pg (28.0-33.3); Mean Corpuscular Volume 96.6 fL (83.0-100.0); Mean Platelet Volume 10.5 fL (9.4-12.4); Monocytes # 1.4 K/mcL (0.0-1.3); Monocytes % 7.7 %; Neutrophils # 13.8 K/mcL (1.6-8.9); Nucleated Red Blood Cells 0.5 /100 WBC (0); Platelet Count 292 K/mcL (140-400); Red Blood Count 2.92 M/mcL (3.82-4.97); Red Cell Distribution Width 18.5 % (11.5-14.5); Segmented Neutrophils % 76.9 %; White Blood Count 17.9 K/mcL (4.3-11.1)
[2020-11-13 07:10] LABS: Hemoglobin 8.7 g/dL (11.5-15.4)
[2020-11-13 07:20] LABS: Potassium 3.7 mEq/L (3.5-5.1)
[2020-11-13] MEDS: Lactobacillus 1 EACH CAP.SPRINK PO SCH ×2 (11:04→21:42)
[2020-11-13] MEDS: Sennosides/Docusate Sodium TABLET PO SCH ×2 (11:04→21:42)
[2020-11-13] MEDS: (Sucroferric Oxyhydroxide [Velphoro] 500 MG Tab.Chew) PO SCH ×3 (11:05→17:40)
[2020-11-13] MEDS: Moxifloxacin OPTH Drops 3 ML BOTTLE BOTH EYES SCH ×3 (11:05→21:42)
[2020-11-13] MEDS: Metoprolol XL (24 HR) Succ 25 MG TAB.ER.24H PO SCH (11:05)
[2020-11-13] MEDS: Nystatin POWDER 30 GM BOTTLE TP SCH ×2 (11:05→21:43)
[2020-11-13] MEDS ORDERED: Darbepoetin 100 MCG/0.5 ML SYRINGE SQ ONE (13:00)
[2020-11-14 02:10] LABS: Basophils # 0.1 K/mcL (0.0-0.2); Basophils % 0.5 %; Eosinophils # 0.1 K/mcL (0.0-0.6); Eosinophils % 0.8 %; Hematocrit 26.5 % (35.3-44.9); Immature Granulocytes % 3.5 % (0-4); Lymphocytes # 1.7 K/mcL (0.6-4.6); Lymphocytes % 9.5 %; Mean Corpuscular HGB Conc 30.2 g/dL (31.6-35.5); Mean Corpuscular Hemoglobin 29.5 pg (28.0-33.3); Mean Corpuscular Volume 97.8 fL (83.0-100.0); Mean Platelet Volume 10.5 fL (9.4-12.4); Monocytes # 1.7 K/mcL (0.0-1.3); Monocytes % 9.5 %; Neutrophils # 13.7 K/mcL (1.6-8.9); Nucleated Red Blood Cells 0.2 /100 WBC (0); Platelet Count 293 K/mcL (140-400); Red Blood Count 2.71 M/mcL (3.82-4.97); Red Cell Distribution Width 18.4 % (11.5-14.5); Segmented Neutrophils % 76.2 %; White Blood Count 17.9 K/mcL (4.3-11.1)
[2020-11-14 02:30] LABS: BUN/Creatinine Ratio 7 (6-26); Blood Urea Nitrogen 28 mg/dL (8-23); Calcium 8.9 mg/dL (8.6-10.3); Carbon Dioxide 26 mEq/L (23-29); Chloride 102 mEq/L (98-107); Glucose 93 mg/dL (70-105); Iron 41 mcg/dL (50-170); Osmolality,Calculated 289 (280-300); Potassium 3.8 mEq/L (3.5-5.1); Sodium 137 mEq/L (136-145); Transferrin < 75 mg/dL (203-362); eGFR For African Americans 13 (> 60); eGFR For Non-African Americans 10 (> 60)
[2020-11-14 02:45] LABS: Thyroid Stimulating Hormone 37.067 mcIU/mL (0.340-5.600)
[2020-11-14] MEDS: *HR* Heparin 5,000 UNIT/ML VIAL SQ SCH ×3 (05:33→21:43)
[2020-11-14] MEDS: Piperacillin/Tazobactam 3.375 GM in 0.9 % Sodium Chloride Mini Bag 100 ML IVPB SCH ×2 (05:33→17:12)
[2020-11-14] MEDS: (Sucroferric Oxyhydroxide [Velphoro] 500 MG Tab.Chew) PO SCH ×3 (09:19→17:10)
[2020-11-14] MEDS: Sennosides/Docusate Sodium TABLET PO SCH ×2 (09:19→21:43)
[2020-11-14] MEDS: Lactobacillus 1 EACH CAP.SPRINK PO SCH ×2 (09:20→21:43)
[2020-11-14] MEDS: Metoprolol XL (24 HR) Succ 25 MG TAB.ER.24H PO SCH (09:20)
[2020-11-14] MEDS: Levothyroxine Sodium 100 MCG VIAL IVP SCH (09:20)
[2020-11-14] MEDS: Moxifloxacin OPTH Drops 3 ML BOTTLE BOTH EYES SCH ×3 (09:20→22:22)
[2020-11-14] MEDS: Nystatin POWDER 30 GM BOTTLE TP SCH ×2 (09:22→21:43)
[2020-11-14 17:40] LABS: ABG Base Excess 3 mEq/L (-2 to 3); ABG HCO3 28 mEq/L (21-27); ABG Oxygen Saturation 98 % (95-98); ABG PCO2 44 mmHg (35-45); ABG PH 7.42 pH Units (7.32-7.45); ABG PO2 106 mmHg (85-104); ABG TCO2 30 mEq/L (20-26)
[2020-11-14] MEDS ORDERED: Isovue-370 500 ML BOTTLE IVP ONE (17:44)
[2020-11-15 04:04] LABS: Basophils # 0.1 K/mcL (0.0-0.2); Basophils % 0.5 %; Eosinophils # 0.2 K/mcL (0.0-0.6); Eosinophils % 1.2 %; Hematocrit 26.9 % (35.3-44.9); Hemoglobin 8.1 g/dL (11.5-15.4); Immature Granulocytes % 3.6 % (0-4); Lymphocytes # 1.8 K/mcL (0.6-4.6); Lymphocytes % 10.1 %; Mean Corpuscular HGB Conc 30.1 g/dL (31.6-35.5); Mean Corpuscular Hemoglobin 29.5 pg (28.0-33.3); Mean Corpuscular Volume 97.8 fL (83.0-100.0); Mean Platelet Volume 10.2 fL (9.4-12.4); Monocytes # 1.4 K/mcL (0.0-1.3); Monocytes % 8.2 %; Neutrophils # 13.3 K/mcL (1.6-8.9); Nucleated Red Blood Cells 0.3 /100 WBC (0); Platelet Count 279 K/mcL (140-400); Red Blood Count 2.75 M/mcL (3.82-4.97); Red Cell Distribution Width 18.4 % (11.5-14.5); Segmented Neutrophils % 76.4 %; White Blood Count 17.4 K/mcL (4.3-11.1)
[2020-11-15 04:21] LABS: Calcium 8.5 mg/dL (8.6-10.3); Phosphorous 3.1 mg/dL (2.7-4.5)
[2020-11-15] MEDS: Piperacillin/Tazobactam 3.375 GM in 0.9 % Sodium Chloride Mini Bag 100 ML IVPB SCH ×2 (05:52→18:07)
[2020-11-15] MEDS: *HR* Heparin 5,000 UNIT/ML VIAL SQ SCH ×3 (05:52→21:59)
[2020-11-15] MEDS ORDERED: 0.9 % Sodium Chloride 250 ML IVC PRN (07:28)
[2020-11-15] MEDS ORDERED: *HR* Heparin 10,000 UNIT/10 ML VIAL IV PRN ×2 (07:28)
[2020-11-15] MEDS ORDERED: 0.9 % Sodium Chloride 1,000 ML PRIME SCH (07:30)
[2020-11-15] MEDS: Metoprolol XL (24 HR) Succ 25 MG TAB.ER.24H PO SCH (07:48)
[2020-11-15] MEDS: Sennosides/Docusate Sodium TABLET PO SCH ×2 (07:48→21:46)
[2020-11-15] MEDS: Levothyroxine Sodium 100 MCG VIAL IVP SCH (07:49)
[2020-11-15] MEDS: Lactobacillus 1 EACH CAP.SPRINK PO SCH ×2 (07:49→21:47)
[2020-11-15] MEDS: (Sucroferric Oxyhydroxide [Velphoro] 500 MG Tab.Chew) PO SCH ×2 (07:50→12:47)
[2020-11-15] MEDS: Moxifloxacin OPTH Drops 3 ML BOTTLE BOTH EYES SCH ×3 (07:50→22:01)
[2020-11-15] MEDS ORDERED: Vancomycin 1,500 MG/265 ML IV.SOLN IVPB ONE ×2 (10:00→12:00)
[2020-11-15] MEDS: Nystatin POWDER 30 GM BOTTLE TP SCH ×2 (12:47→21:47)
[2020-11-15] MEDS ORDERED: Ergocalciferol (VIT D2) 50,000 UNIT (1.25MG) CAP PO SCH (18:17)
[2020-11-16] MEDS: Piperacillin/Tazobactam 3.375 GM in 0.9 % Sodium Chloride Mini Bag 100 ML IVPB SCH ×2 (05:35→17:58)
[2020-11-16] MEDS: *HR* Heparin 5,000 UNIT/ML VIAL SQ SCH ×3 (05:38→21:24)
[2020-11-16] MEDS ORDERED: Levothyroxine Sodium 100 MCG VIAL IVP SCH (09:00)
[2020-11-16 09:25] LABS: Basophils # 0.1 K/mcL (0.0-0.2); Basophils % 0.5 %; Eosinophils # 0.2 K/mcL (0.0-0.6); Eosinophils % 0.7 %; Hematocrit 27.3 % (35.3-44.9); Hemoglobin 8.5 g/dL (11.5-15.4); Immature Granulocytes % 3.6 % (0-4); Lymphocytes # 1.8 K/mcL (0.6-4.6); Lymphocytes % 8.7 %; Mean Corpuscular HGB Conc 31.1 g/dL (31.6-35.5); Mean Corpuscular Hemoglobin 29.3 pg (28.0-33.3); Mean Corpuscular Volume 94.1 fL (83.0-100.0); Mean Platelet Volume 10.3 fL (9.4-12.4); Monocytes # 1.6 K/mcL (0.0-1.3); Neutrophils # 16.1 K/mcL (1.6-8.9); Nucleated Red Blood Cells 0.4 /100 WBC (0); Platelet Count 309 K/mcL (140-400); Red Cell Distribution Width 18.6 % (11.5-14.5); Segmented Neutrophils % 78.5 %; White Blood Count 20.5 K/mcL (4.3-11.1)
[2020-11-16] MEDS: Lactobacillus 1 EACH CAP.SPRINK PO SCH ×2 (09:33→21:24)
[2020-11-16] MEDS: Metoprolol XL (24 HR) Succ 25 MG TAB.ER.24H PO SCH (09:33)
[2020-11-16] MEDS: Nystatin POWDER 30 GM BOTTLE TP SCH ×2 (09:34→21:25)
[2020-11-16] MEDS: Moxifloxacin OPTH Drops 3 ML BOTTLE BOTH EYES SCH ×3 (09:35→21:26)
[2020-11-16] MEDS: Sennosides/Docusate Sodium TABLET PO SCH ×2 (09:35→21:24)
[2020-11-16 09:43] LABS: Calcium 9.5 mg/dL (8.6-10.3); Potassium 4.3 mEq/L (3.5-5.1)
[2020-11-16] MEDS ORDERED: Fluconazole 200 MG/100 ML 200 MG/100 ML BAG IVPB ONE (10:54)
[2020-11-16] MEDS ORDERED: Isovue-370 500 ML BOTTLE IVP ONE (10:56)
[2020-11-17 05:30] LABS: Calcium 9.6 mg/dL (8.6-10.3); Potassium 4.4 mEq/L (3.5-5.1)
[2020-11-17] MEDS: Piperacillin/Tazobactam 3.375 GM in 0.9 % Sodium Chloride Mini Bag 100 ML IVPB SCH ×2 (05:50→21:44)
[2020-11-17] MEDS: *HR* Heparin 5,000 UNIT/ML VIAL SQ SCH ×3 (05:51→21:45)
[2020-11-17] MEDS ORDERED: *HR* Heparin 10,000 UNIT/10 ML VIAL IV PRN ×3 (07:23→19:41)
[2020-11-17] MEDS ORDERED: 0.9 % Sodium Chloride 250 ML IVC PRN (07:23)
[2020-11-17] MEDS ORDERED: 0.9 % Sodium Chloride 1,000 ML PRIME SCH (07:30)
[2020-11-17 08:51] LABS: Basophils # 0.1 K/mcL (0.0-0.2); Basophils % 0.5 %; Eosinophils # 0.2 K/mcL (0.0-0.6); Eosinophils % 1.2 %; Hematocrit 25.4 % (35.3-44.9); Hemoglobin 8.1 g/dL (11.5-15.4); Immature Granulocytes % 3.3 % (0-4); Lymphocytes # 1.8 K/mcL (0.6-4.6); Lymphocytes % 10.6 %; Mean Corpuscular HGB Conc 31.9 g/dL (31.6-35.5); Mean Corpuscular Hemoglobin 29.6 pg (28.0-33.3); Mean Corpuscular Volume 92.7 fL (83.0-100.0); Mean Platelet Volume 10.9 fL (9.4-12.4); Monocytes # 1.2 K/mcL (0.0-1.3); Monocytes % 6.9 %; Nucleated Red Blood Cells 0.6 /100 WBC (0); Platelet Count 301 K/mcL (140-400); Red Blood Count 2.74 M/mcL (3.82-4.97); Red Cell Distribution Width 18.5 % (11.5-14.5); Segmented Neutrophils % 77.5 %; White Blood Count 16.8 K/mcL (4.3-11.1)
[2020-11-17] MEDS: Acetaminophen 325 MG TABLET PO PRN (10:00)
[2020-11-17] MEDS: Sennosides/Docusate Sodium TABLET PO SCH ×2 (12:26→21:45)
[2020-11-17] MEDS: Metoprolol XL (24 HR) Succ 25 MG TAB.ER.24H PO SCH (12:27)
[2020-11-17] MEDS: Lactobacillus 1 EACH CAP.SPRINK PO SCH ×2 (12:27→21:45)
[2020-11-17] MEDS: Moxifloxacin OPTH Drops 3 ML BOTTLE BOTH EYES SCH ×3 (12:28→21:45)
[2020-11-17] MEDS: Nystatin POWDER 30 GM BOTTLE TP SCH ×2 (12:28→21:45)
[2020-11-17] MEDS: D10% in Water 500 ML IVC SCH (13:40)
[2020-11-17] MEDS ORDERED: D10% in Water 500 ML ONE (14:00)
[2020-11-17] MEDS ORDERED: D10% in Water 500 ML IVC SCH (14:15)
[2020-11-17] MEDS ORDERED: Albumin 25% 25gram/100mL 25 GM/100 ML IV.SOLN IVPB ONE (14:57)
[2020-11-17] MEDS ORDERED: 0.9 % Sodium Chloride 1,000 ML ONE (16:34)
[2020-11-17] MEDS: Fluconazole 200 MG/100 ML 100 MG/50 ML BAG IVPB SCH (23:34)
[2020-11-18] MEDS: D10% in Water 500 ML IVC SCH ×3 (01:00→17:11)
[2020-11-18] MEDS: Piperacillin/Tazobactam 3.375 GM in 0.9 % Sodium Chloride Mini Bag 100 ML IVPB SCH ×2 (05:24→17:06)
[2020-11-18] MEDS: *HR* Heparin 5,000 UNIT/ML VIAL SQ SCH ×3 (05:24→20:02)
[2020-11-18 08:42] LABS: Calcium 9.2 mg/dL (8.6-10.3); Potassium 3.7 mEq/L (3.5-5.1)
[2020-11-18 09:26] LABS: Hematocrit 25.9 % (35.3-44.9); Hemoglobin 8.3 g/dL (11.5-15.4); Mean Corpuscular Hemoglobin 29.6 pg (28.0-33.3); Mean Corpuscular Volume 92.5 fL (83.0-100.0); Mean Platelet Volume 11.3 fL (9.4-12.4); Nucleated Red Blood Cells 0.6 /100 WBC (0); Platelet Count 311 K/mcL (140-400); Red Cell Distribution Width 18.6 % (11.5-14.5)
[2020-11-18 09:53] LABS: White Blood Count 28.4 K/mcL (4.3-11.1)
[2020-11-18] MEDS ORDERED: 0.9 % Sodium Chloride 500 ML IVC ONE (10:04)
[2020-11-18 10:09] LABS: Lymphocytes # 1.7 K/mcL (0.6-4.6); Monocytes # 1.7 K/mcL (0.0-1.3); Neutrophils # 24.4 K/mcL (1.6-8.9)
[2020-11-18 10:10] LABS: Burr Cells 1+ (Not Present); Platelet Estimate Normal (Normal); Poikilocytosis 1+ (Not Present); Target Cells 1+ (Not Present)
[2020-11-18] MEDS: Moxifloxacin OPTH Drops 3 ML BOTTLE BOTH EYES SCH ×3 (10:18→20:03)
[2020-11-18] MEDS: Nystatin POWDER 30 GM BOTTLE TP SCH ×2 (10:18→20:03)
[2020-11-18] MEDS: Sennosides/Docusate Sodium TABLET PO SCH ×2 (10:31→19:49)
[2020-11-18] MEDS: Lactobacillus 1 EACH CAP.SPRINK PO SCH ×2 (10:33→19:48)
[2020-11-18] MEDS: Fluconazole 200 MG/100 ML 100 MG/50 ML BAG IVPB SCH (17:07)
[2020-11-18 19:25] LABS: Acinetobacter baumannii by PCR Not Detected (Not Detect); Candida albicans by PCR Not Detected (Not Detect); Candida glabrata by PCR Not Detected (Not Detect); Candida krusei by PCR Not Detected (Not Detect); Candida parapsilosis by PCR Not Detected (Not Detect); Candida tropicalis by PCR Not Detected (Not Detect); Enterobacter cloacae Cmplx PCR Not Detected (Not Detect); Enterobacteriaceae by PCR Not Detected (Not Detect); Enterococcus by PCR DETECTED (Not Detect); Escherichia coli by PCR Not Detected (Not Detect); Klebsiella oxytoca by PCR Not Detected (Not Detect); Klebsiella pneumoniae by PCR Not Detected (Not Detect); Proteus by PCR Not Detected (Not Detect); Pseudomonas aeruginosa by PCR Not Detected (Not Detect); Serratia marcescens by PCR Not Detected (Not Detect); Staphylococcus aureus by PCR Not Detected (Not Detect); Staphylococcus by PCR Not Detected (Not Detect); Streptococcus agalactiae(B)PCR Not Detected (Not Detect); Streptococcus by PCR Not Detected (Not Detect); Streptococcus pneumoniae PCR Not Detected (Not Detect); Streptococcus pyogenes (A) PCR Not Detected (Not Detect); mecA Methicillin-Resist Gene Not Detected (Not Detect); vanA/B Vancomycin-Resist Genes DETECTED (Not Detect)
[2020-11-19] MEDS: D10% in Water 500 ML IVC SCH ×2 (04:28)
[2020-11-19] MEDS: Piperacillin/Tazobactam 3.375 GM in 0.9 % Sodium Chloride Mini Bag 100 ML IVPB SCH (05:43)
[2020-11-19] MEDS: *HR* Heparin 5,000 UNIT/ML VIAL SQ SCH ×2 (05:43→15:17)
[2020-11-19] MEDS ORDERED: Levothyroxine Sodium 100 MCG VIAL IVP SCH (06:30)
[2020-11-19 09:32] LABS: Basophils # 0.1 K/mcL (0.0-0.2); Basophils % 0.3 %; Eosinophils # 0.1 K/mcL (0.0-0.6); Eosinophils % 0.5 %; Hemoglobin 7.5 g/dL (11.5-15.4); Immature Granulocytes % 2.6 % (0-4); Lymphocytes # 1.8 K/mcL (0.6-4.6); Lymphocytes % 7.5 %; Mean Corpuscular HGB Conc 31.3 g/dL (31.6-35.5); Mean Corpuscular Hemoglobin 29.1 pg (28.0-33.3); Mean Platelet Volume 11.7 fL (9.4-12.4); Monocytes % 4.4 %; Neutrophils # 20.2 K/mcL (1.6-8.9); Nucleated Red Blood Cells 0.5 /100 WBC (0); Platelet Count 270 K/mcL (140-400); Red Blood Count 2.58 M/mcL (3.82-4.97); Red Cell Distribution Width 19.1 % (11.5-14.5); Segmented Neutrophils % 84.7 %; White Blood Count 23.8 K/mcL (4.3-11.1)
[2020-11-19 09:40] LABS: Calcium 9.3 mg/dL (8.6-10.3); Potassium 3.2 mEq/L (3.5-5.1)
[2020-11-19] MEDS ORDERED: 0.9 % Sodium Chloride 500 ML IVC ONE (10:51)
[2020-11-19] MEDS: Lactobacillus 1 EACH CAP.SPRINK PO SCH (11:34)
[2020-11-19] MEDS: Sennosides/Docusate Sodium TABLET PO SCH (11:35)
[2020-11-19] MEDS: Moxifloxacin OPTH Drops 3 ML BOTTLE BOTH EYES SCH ×3 (11:55→19:45)
[2020-11-19] MEDS: Nystatin POWDER 30 GM BOTTLE TP SCH ×2 (11:56→19:44)
[2020-11-19] MEDS ORDERED: Atropine 1% Opth Drops 100 DROP/5 ML BOTTLE SL PRN (14:19)
[2020-11-19] MEDS ORDERED: Acetaminophen 650 MG RECTAL SUPP RC PRN (14:19)
[2020-11-19] MEDS ORDERED: Haloperidol Oral Conc 10 MG/5 ML UDC PO PRN (14:20)
[2020-11-19] MEDS: *HR* FentaNYL (PF) 100 MCG/2 ML VIAL IVP PRN ×2 (16:56→19:41)
[2020-11-19] MEDS: *HR* LORazepam Oral Conc 2 MG/ML SL PRN (19:42)
[2020-11-20 05:56] LABS: Calcium 9.6 mg/dL (8.6-10.3)
[2020-11-20 06:55] VITALS: BP 107/49
[2020-11-20] MEDS: *HR* LORazepam Oral Conc 2 MG/ML SL PRN (10:35)
[2020-11-20] MEDS: *HR* FentaNYL (PF) 100 MCG/2 ML VIAL IVP PRN (12:48)
[2020-11-20] MEDS: Moxifloxacin OPTH Drops 3 ML BOTTLE BOTH EYES SCH (12:50)
[2020-11-20] MEDS: Nystatin POWDER 30 GM BOTTLE TP SCH (13:34)
== END 2020-11-20 13:52 | disposition hospice, inpatient (51) | DRG 871 ==
LOC: EMEROOARM 11:09 → 2ANU 11:09 → SUATTDRO 11-14 09:48
PROVIDERS: ADMIT Internal Medicine; ATTEND Family Medicine